=== PATIENT | male | born 1950 | race Caucasian/White ===

== ENCOUNTER 2016-06-30 09:00 | Outpatient (RCR) | payer MEDICARE, OTHER, MEDICAID ==
--- OUTSIDE RECORDS SUMMARY | 2016-04-17 11:22 | XMS REPORT | Continuity of Care Document ---
Author Author [facility] Organization [facility] Address Unknown Phone Unavailable Care Team Providers Care Chief Nurse Name Role Phone YAIR CHAVEZ MD PCP Insurance Providers Payer Name Policy Number Subscriber Name Relationship Wps Medicare [id number] Breana Cano 18 Self / Same As Patient Advance Directives Directive Response Recorded Date/Time Advance Directives Yes 12/01/14 11:30pm Health Care Power of [place] A Driver No 12/01/14 11:30pm Organ Donor No 12/01/14 11:30pm Resuscitation Status Full Code 12/01/14 11:30pm Chief Complaint and Reason for Visit Chief Complaint LOW LOC,SEPSIS,[place] Reason for Visit IDDM (insulin dependent diabetes mellitus) Sepsis AMI (acute myocardial infarction) Altered mental state Pneumonitis Problems Medical Problems Problem Onset Date Status Cellulitis Unknown Active Congestive heart failure Unknown Active Atrial fibrillation Unknown Active History of cardiac disorder Unknown Active Diabetes Unknown Active 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 Cellulitis of foot, left Unknown Active IDDM (insulin dependent diabetes mellitus) Unknown Active Sepsis Unknown Active AMI (acute myocardial infarction) Unknown Active Altered mental state Unknown Active Pneumonitis Unknown Active Medications Medication Dose Route Sig Days/Qty Instructions Order Date Discontinued Date Status Cefprozil 1 Each PO TWICE A DAY 20 Qty FOR INFECTION 08/18/10 02/14/11 Discontinued Azithromycin (Zpak) 2 Tab PO DAILY 10 Qty 08/18/10 02/14/11 Discontinued Prednisone 20 Mg PO TWICE A DAY 4 Qty FOR THROAT 08/18/10 02/14/11 Discontinued Clopidogrel Bisulfate 75 Mg PO DAILY 02/14/11 07/31/13 Discontinued Aspirin 81 Mg PO DAILY 02/14/11 Active Metformin HCl (Glucophage) 1,000 Mg PO TWICE A DAY WITH MEALS 04/29/14 Discontinued Lisinopril (Zestril) 2.5 Mg PO DAILY 02/14/11 Active Digoxin (Lanoxin) 0.25 Mg PO DAILY 02/14/11 04/30/14 Discontinued Furosemide 80 Mg PO TWICE A DAY 02/14/11 04/30/14 Discontinued Potassium Chloride (Micro K) 20 Meq PO TWICE A DAY 02/14/11 Active [place]-3/Dha/Epa/Fish Oil 1,000 Mg PO TWICE A DAY 02/14/11 Active Carvedilol (Coreg) 6.25 Mg PO TWICE A DAY 02/14/11 Active Fenofibrate 135 Mg PO DAILY 02/14/11 04/30/14 Discontinued Niacin 1,000 Mg PO TWICE A DAY 02/14/11 02/15/11 Discontinued Atorvastatin Calcium 80 Mg PO BEDTIME 02/14/11 02/19/14 Discontinued Insulin Lispro 24 Unit SQ BEFORE MEALS 02/14/11 Active Insulin Detemir 60 Units SQ BEDTIME 02/14/11 Active Gemfibrozil 600 Mg PO TWICE A DAY 02/15/11 07/28/13 Discontinued Acetaminophen/Hydrocodone Bitart 1 Each PO 01/16/13 07/28/13 Discontinued Gabapentin 100 Mg PO TWICE A DAY 07/28/13 02/19/14 Discontinued Hydrocodone Bit/Acetaminophen 1 Tab PO EVERY 6 HOURS PRN PAIN Active Levofloxacin 500 Mg PO DAILY@11 7 Days 07/31/13 02/19/14 Discontinued Apixaban 5 Mg PO TWICE A DAY 60 Qty 07/31/13 02/19/14 Discontinued Atorvastatin Calcium 80 Mg PO 1700 02/19/14 04/30/14 Discontinued Gabapentin 300 Mg PO THREE TIMES A DAY 02/19/14 Active Apixaban (Eliquis) 5 Mg PO TWICE A DAY 02/19/14 04/30/14 Discontinued Metolazone (Zaroxolyn) 2.5 Mg PO DAILY 02/19/14 04/29/14 Discontinued Cephalexin Monohydrate (Keflex) 1 Each PO THREE TIMES A DAY 60 Qty 04/29/14 Discontinued Terbinafine HCl 1 Tab PO DAILY 14 Qty 02/22/14 04/29/14 Discontinued Furosemide (Lasix) 80 Mg PO TWICE A DAY 04/30/14 Active Atorvastatin Calcium 80 Mg PO DAILY 04/30/14 12/02/14 Discontinued Fenofibric Acid (Choline) 135 Mg PO DAILY 04/30/14 Active Apixaban 5 Mg PO TWICE A DAY 04/30/14 Active Digoxin 250 Mcg PO DAILY 04/30/14 Active Ciprofloxacin HCl 500 Mg PO TWICE A DAY 20 Qty 05/07/14 05/12/14 Discontinued Ciprofloxacin HCl 500 Mg PO TWICE A DAY 10 DAY THERAPY STARTED 05-07-14 05/12/14 12/02/14 Discontinued Carvedilol 3.125 Mg PO TWICE A DAY 30 Days 12/04/14 Active Furosemide 80 Mg PO TWICE A DAY 30 Days 12/04/14 Active Insulin Human Regular 0 Unit SC BEFORE MEALS AND AT BEDTIME 30 Days Active Menthol/Lanolin/Calamine/Znox 0 Gm TOP TWICE A DAY 30 Days 12/04/14 Active Potassium Chloride 20 Meq PO DAILY@0700 30 Days 12/04/14 Active Social History Social History Problem Response Recorded Date/Time Alcohol Use Past History 12/01/2014 11:30pm Recreational Drug Use No 12/01/2014 11:30pm Recent Foreign Travel No 12/01/2014 11:40pm Recent Infectious Disease Exposure No 12/01/2014 11:30pm Sexually Transmitted Disease No 12/01/2014 11:30pm Smoking Status Current Everyday Smoker 12/01/2014 11:32pm Do you dip or chew tobacco? No 12/01/2014 11:32pm Query Response Start Date Stop Date Smoking Status Current Everyday Smoker Hospital Discharge Instructions No hospital discharge instructions. Plan of Care Discharge Date 12/04/14 10:50am Disposition 30 STILL A PATIENT Instructions/Education Provided Sepsis (DC) Prescriptions See Medications Section Referrals KATHLEEN MUNOZ DPM (Unspecified) Address: [address] [facility] [address] [place] [address] Reason(s) for Referral: 05/11/14 AT 9:30 AM IN [place] YAIR CHAVEZ MD (Unspecified) Address: [facility] [facility] [address], [facility] [address] [place] [address] Reason(s) for Referral: SEE DR. CHAVEZ ON 05-22-14 AT 12:30 PM (Unspecified) Today (Unspecified) Today (Unspecified) Reason(s) for Referral: PT/OT Functional Status Query Response Date Recorded Patient Orientation Person Place Time Situation December 03, 2014 2:50pm Comprehension Ability Understands Concepts December 04, 2014 8:00am Allergies, Adverse Reactions, Alerts Allergen Type Severity Reaction Status Last Updated No Known Drug Allergies Active 03/08/08 Immunizations Name Given Type Date of Pneumonia Vaccine 04/29/10 Historical Tetanus Booster (TDap) Unknown Historical Vital Signs Acute Vital Signs Vital Response Date/Time Temperature (Fahrenheit) 96.1 degrees F (97.6 - 99.5) Temperature (Calculated Celsius) 35.08422 degrees C (36.4 - 37.5) Temperature Source Tympanic Pulse Rate (adult) 85 bpm (60 - 90) Respiratory Rate 18 bpm (12 - 24) O2 Sat by Pulse Oximetry 95 % (88 - 100) Blood Pressure 87/53 mm Hg Pain Pain Intensity 0 Height (Feet) 6 feet Height (Inches) 10 inches Height (Calculated Centimeters) 182.565069 cm Weight (Pounds) 236 pounds Weight (Ounces) 5.0 oz Weight (Calculated Grams) 461750.548 gm Weight (Calculated Kilograms) 107.855623 kilograms Calculated BMI 31.56 Results Laboratory Results Test Name Result Units Flags Reference Collection Date/Time Result Date/ Time Comments White Blood Count 12.7 10^3/uL H 4.3-11.0 12/04/2014 8:25am 12/04/2014 8: 55am Red Blood Count 5.08 10^6/uL 4.35-5.85 12/04/2014 8:12/04/2014 8: 55am Hemoglobin 14.0 G/DL 13.3-17.7 12/04/2014 8:12/04/2014 8:55am Hematocrit 43 % 40-54 12/04/2014 8:12/04/2014 8:55am Mean Corpuscular Volume 84 FL 80-99 12/04/2014 8:12/04/2014 8: 55am Mean Corpuscular Hemoglobin 28 PG 25-34 12/04/2014 8:12/04/2014 8: 55am Mean Corpuscular Hemoglobin Concent 33 G/DL 32-36 12/04/2014 8: 8:55am Red Cell Distribution Width 16.1 % H 10.0-14.5 12/04/2014 8:2014 8:55am Platelet Count 130 10^3/uL 130-400 12/04/2014 8:12/04/2014 8:55am Mean Platelet Volume 11.5 FL H 7.4-10.4 12/04/2014 8:12/04/2014 8: 55am Neutrophils (%) (Auto) 86 % H 42-75 12/03/2014 7:12/03/2014 7:35am Lymphocytes (%) (Auto) 6 % L 12-44 12/03/2014 7:12/03/2014 7:35am Monocytes (%) (Auto) 8 % 0-12 12/03/2014 7:12/03/2014 7:35am Eosinophils (%) (Auto) 0 % 0-10 12/03/2014 7:12/03/2014 7:35am Basophils (%) (Auto) 0 % 0-10 12/03/2014 7:12/03/2014 7:35am Neutrophils # (Auto) 7.9 X 10^3 H 1.8-7.8 12/03/2014 7:12/03/2014 7: 35am Lymphocytes # (Auto) 0.6 X 10^3 L 1.0-4.0 12/03/2014 7:12/03/2014 7: 35am Monocytes # (Auto) 0.7 X 10^3 0.0-1.0 12/03/2014 7:11am 12/03/2014 7: 35am Eosinophils # (Auto) 0.0 10^3/uL 0.0-0.3 12/03/2014 7:11am 12/03/2014 7 :35am Basophils # (Auto) 0.0 10^3/uL 0.0-0.1 12/03/2014 7:11am 12/03/2014 7: 35am Neutrophils % (Manual) 60 % 12/01/2014 7:40pm 12/01/2014 8:20pm Band Neutrophils 36 % 12/01/2014 7:40pm 12/01/2014 8:20pm Lymphocytes % (Manual) 2 % 12/01/2014 7:40pm 12/01/2014 8:20pm Monocytes % (Manual) 2 % 12/01/2014 7:40pm 12/01/2014 8:20pm Eosinophils % (Manual) 0 % 12/01/2014 7:40pm 12/01/2014 8:20pm Basophils % (Manual) 0 % 12/01/2014 7:40pm 12/01/2014 8:20pm Blood Morphology Comment NORMAL 12/01/2014 7:40pm 12/01/2014 8: 20pm Urine Color MARCOS * 12/01/2014 9:23pm 12/01/2014 9:44pm Urine Clarity SLIGHTLY CLOUDY 12/01/2014 9:23pm 12/01/2014 9:44pm Urine pH 5 5-9 12/01/2014 9:23pm 12/01/2014 9:44pm Urine Specific [place] 1.025 * 1.016-1.022 12/01/2014 9:23pm 2014 9:44pm Urine Protein 3+ * NEGATIVE 12/01/2014 9:23pm 12/01/2014 9:44pm Urine Glucose (UA) NEGATIVE NEGATIVE 12/01/2014 9:23pm 12/01/2014 9: 44pm Urine RBC (Auto) 4+ * NEGATIVE 12/01/2014 9:23pm 12/01/2014 9:44pm Urine Ketones 1+ * NEGATIVE 12/01/2014 9:23pm 12/01/2014 9:44pm Urine Nitrite NEGATIVE NEGATIVE 12/01/2014 9:23pm 12/01/2014 9:44pm Urine Bilirubin 1+ * NEGATIVE 12/01/2014 9:pm 12/01/2014 9:44pm Urine Urobilinogen 1 MG/DL NORMAL 12/01/2014 9:pm 12/01/2014 9:44pm Urine Leukocyte Esterase 1+ * NEGATIVE 12/01/2014 9:pm 12/01/2014 9: 44pm Urine RBC 2-5 /HPF * 12/01/2014 9:pm 12/01/2014 9:44pm Urine WBC 5-10 /HPF * 12/01/2014 9:pm 12/01/2014 9:44pm Urine Bacteria MODERATE /HPF * 12/01/2014 9:pm 12/01/2014 9:44pm Urine Squamous Epithelial Cells 5-10 /HPF 12/01/2014 9:pm 2014 9:44pm Urine Crystals NONE /LPF 12/01/2014 9:pm 12/01/2014 9:44pm Urine Casts PRESENT /LPF 12/01/2014 9:pm 12/01/2014 9:44pm Urine Hyaline Casts 5-10 /LPF * 12/01/2014 9:12/01/2014 9:44pm Urine Mucus NEGATIVE /LPF 12/01/2014 9:pm 12/01/2014 9:44pm Urine Culture Indicated YES 12/01/2014 9:pm 12/01/2014 9:44pm Sodium Level 132 MMOL/L L 135-145 12/04/2014 8:25am 12/04/2014 9:25am Potassium Level 3.7 MMOL/L 3.6-5.0 12/04/2014 8:25am 12/04/2014 9:25am Chloride Level 101 MMOL/L 98-107 12/04/2014 8:25am 12/04/2014 9:25am Carbon Dioxide Level 24 MMOL/L 21-32 12/04/2014 8:25am 12/04/2014 9: 25am Blood Urea Nitrogen 40 MG/DL H 7-18 12/04/2014 8:25am 12/04/2014 9:25am Creatinine 1.28 MG/DL 0.60-1.30 12/04/2014 8:25am 12/04/2014 9:25am BUN/Creatinine Ratio 31 12/04/2014 8:25am 12/04/2014 9:25am Estimat Glomerular Filtration Rate 56 12/04/2014 8:25am 12/04/2014 9:25am GFR INTERPRETIVE DATA UNITS FOR ESTIMATED GFR (eGFR): mL/min/1.73 M2 REFERENCE RANGE FOR ESTIMATED GFR (eGFR) eGFR NORMAL eGFR >60 MODERATELY DECREASED eGFR 30-59 SEVERLY DECREASED eGFR 15-29 KIDNEY FAILURE <15 (OR DIALYSIS) Glucose Level 54 MG/DL CL 70-105 12/04/2014 8:25am 12/04/2014 9:25am RESULTS CALLED TO SHAYY AT 09. RESULTS READ BACK: YES. Glucometer 96 MG/DL 70-110 12/04/2014 10:27am 12/04/2014 11:16am Calcium Level 8.2 MG/DL L 8.5-10.1 12/04/2014 8:25am 12/04/2014 9:25am Phosphorus Level 3.8 MG/DL 2.3-4.7 12/03/2014 6:00am 12/03/2014 7:11am Magnesium Level 2.1 MG/DL 1.8-2.4 12/03/2014 6:00am 12/03/2014 6:52am Total Bilirubin 2.0 MG/DL H 0.1-1.0 12/02/2014 5:03am 12/02/2014 5:50am Alkaline Phosphatase 72 U/L 40-136 12/02/2014 5:03am 12/02/2014 5:50am Aspartate Amino Transf (AST/SGOT) 63 U/L H 5-34 12/02/2014 5:03am 2014 5:50am Alanine Aminotransferase (ALT/SGPT) 14 U/L 0-55 12/02/2014 5:03am 12/02 5:50am Troponin I 25.47 NG/ML CH <0.30 12/01/2014 7:40pm 12/01/2014 8:27pm RESULT CALLED TO SHEILA AT 2026. RESULTS READ BACK: YES. Total Protein 6.7 G/DL 6.4-8.2 12/02/2014 5:03am 12/02/2014 5:50am Albumin 3.1 G/DL L 3.2-4.5 12/02/2014 5:03am 12/02/2014 5:50am Lipase 5 U/L L 8-78 12/01/2014 7:40pm 12/01/2014 8:20pm Lactic Acid Level 3.6 MMOL/L CH 0.5-2.2 12/01/2014 UNK 12/01/2014 8:38pm RESULTS CALLED TO NEFTALY AT 2035. RESULTS READ BACK: YES. Vancomycin Level Trough 11.2 UG/ML 10.0-20.0 12/04/2014 8:25am 2014 9:12am Digoxin Level 1.01 NG/ML 0.80-2.00 12/01/2014 7:40pm 12/01/2014 8:27pm Microbiology Results Procedure Source Result Collection Date/Time Result Date/Time Anaerobic Culture Tissue, Foot, Left ANAEROBIC GRAM NEGATIVE KARMEN 08/19/2014 1:46pm 08/26/2014 11:06am PORPHYOMONAS SPECIES 08/19/2014 1:46pm 08/26/2014 11:06am PREVOTELLA SPECIES 08/19/2014 1:46pm 08/26/2014 11:06am Wound Culture Tissue, Foot, Left GRAM POSITIVE COCCI 08/19/2014 1:46pm 3:43pm STAPHYLOCOCCUS AUREUS 08/19/2014 1:46pm 08/23/2014 3:43pm GRAM POSITIVE COCCI 08/19/2014 1:46pm 08/23/2014 3:43pm STAPHYLOCOCCUS AUREUS 08/19/2014 1:46pm 08/23/2014 3:43pm GRAM POSITIVE COCCI 08/19/2014 1:46pm 08/23/2014 3:43pm PROBABLE ENTEROCOCCUS SPECIES 08/19/2014 1:46pm 08/23/2014 3:43pm STAPHYLOCOCCUS AUREUS 08/19/2014 1:46pm 08/23/2014 3:43pm STREPTOCOCCUS VIRIDANS 08/19/2014 1:46pm 08/23/2014 3:43pm ENTEROCOCCUS FAECALIS 08/19/2014 1:46pm 08/23/2014 3:43pm GRAM POSITIVE COCCI 08/19/2014 1:46pm 08/23/2014 3:43pm STAPHYLOCOCCUS AUREUS 08/19/2014 1:46pm 08/23/2014 3:43pm STREPTOCOCCUS VIRIDANS 08/19/2014 1:46pm 08/23/2014 3:43pm ENTEROCOCCUS FAECALIS 08/19/2014 1:46pm 08/23/2014 3:43pm STAPHYLOCOCCUS AUREUS 08/19/2014 1:46pm 08/23/2014 3:43pm ENTEROCOCCUS FAECALIS 08/19/2014 1:46pm 08/23/2014 3:43pm STAPHYLOCOCCUS AUREUS 08/19/2014 1:46pm 08/23/2014 3:43pm Procedures Procedure Status Date Provider(s) Tracing only of electrocardiogram completed 12/01/14 KAREN BROWN DO Encounters Encounter Location Date/Time Discharged Inpatient Via [facility] 12/01/14 9:13pm Registered Recurring Via [facility] 11/25/14 10:18am Discharged Recurring Via [facility] 08/19/14 10:05am Recent Diagnosis IDDM (insulin dependent diabetes mellitus) Sepsis AMI (acute myocardial infarction) Altered mental state Pneumonitis
[~2016-06-30 09:00] MED LIST: ACHD5005 PO; ACHYD1T PO; APIX5TAB2 PO; ASP81TEC PO; ATOR40TA PO; ATOR80TA2 PO; ATOR80TA75 PO; AZIT-21 PO; CARV3.12T PO; CARV6.252 PO; CEFP500T4 PO; CEPH500C PO; CIPR500T78 PO; CLPD75T PO; DIGO250T PO; DOXY100C42 PO; EUCERIN TOP; FENO135C PO; FENO135C4 PO; FISH1CAP15 PO; FRSM40T PO; FURO80TA3 PO; GABA-488 PO; GBPN100C PO; GMFB600T PO; HYDR-2890 PO; HYDR-3820 PO; INSR1U SC; INSU100I14 SQ; INSU100I23 SQ; KCL20TCR PO; LEVE1U SQ; LISI2.5T56 PO; LVF500T PO; MENT71OI TOP; METF-380 PO; METO2.5T PO; MTL2.5T PO; Mupirocin TOP; NIAC1000 PO; Nystatin TP; OMEG-12 PO; POTA10CA43 PO; POTA10TA PO; PRD20T PO; TERB250T42 PO
[2016-07-14] MEDS ORDERED: METO5TAB6 PO (10:55)
[2016-07-14] MEDS ORDERED: APIX5TAB PO (10:55)
[2016-07-14] MEDS ORDERED: POTA20TA8 PO (10:55)
[2016-07-14] MEDS ORDERED: CLOP75TA28 PO (10:55)
[2016-07-14] MEDS ORDERED: LISI2.5T PO (10:55)
[2016-07-14] MEDS ORDERED: DIGO250T PO (10:55)
[2016-07-14] MEDS ORDERED: FURO80TA3 PO (10:55)
[2016-07-14] MEDS ORDERED: CARV6.252 PO (10:55)
[2016-07-17] MEDS ORDERED: HYDR-3820 PO (11:38)
[2016-07-17] MEDS ORDERED: AMOX-355 PO (11:38)
== END 2016-07-16 | disposition home or self-care (01) ==
LOC: WOUNDCARE 09:00
PROVIDERS: ATTEND Surgery
DX: E11.621 Type 2 diabetes mellitus with foot ulcer (principal); E11.42 Type 2 diabetes mellitus with diabetic polyneuropathy; L97.522 Non-pressure chronic ulcer of other part of left foot with fat layer exposed; L97.422 Non-pressure chronic ulcer of left heel and midfoot with fat layer exposed; I70.244 Atherosclerosis of native arteries of left leg with ulceration of heel and midfoot; I87.323 Chronic venous hypertension (idiopathic) with inflammation of bilateral lower extremity; I50.40 Unspecified combined systolic (congestive) and diastolic (congestive) heart failure; I89.0 Lymphedema, not elsewhere classified; T53 Toxic effect of halogen derivatives of aliphatic and aromatic hydrocarbons; Z72.0 Tobacco use
CPT/HCPCS: 11042; 87070; 87075; 87077; 87186; 87205

== ENCOUNTER 2016-07-14 09:18 | Inpatient (IN) | payer MEDICARE, OTHER, MEDICAID ==
[~2016-07-14] VITALS: Ht 182.9 cm; Wt 97.2 kg
--- OUTSIDE RECORDS SUMMARY | 2016-07-14 09:23 | XMS REPORT | Continuity of Care Document ---
Author Author [facility] Organization [facility] Address Unknown Phone Unavailable Care Team Providers Care Junior Network Engineer Name Role Phone YAIR CHAVEZ MD PCP Insurance Providers Payer Name Policy Number Subscriber Name Relationship Wps Medicare [id number] Breana Cano 18 Self / Same As Patient Advance Directives Directive Response Recorded Date/Time Advance Directives Yes 12/01/14 11:30pm Health Care Power of Country Printer No 12/01/14 11:30pm Organ Donor No 12/01/14 11:30pm Resuscitation Status Full Code 12/01/14 11:30pm Chief Complaint and Reason for Visit Chief Complaint LOW LOC,SEPSIS,[place] Reason for Visit IDDM (insulin dependent diabetes [...] Meq PO TWICE A DAY 02/14/11 Active [place]-3/Dha/Epa/Fish Oil 1,000 Mg PO TWICE A DAY [...] Referrals KATHLEEN MUNOZ DPM (Unspecified) Address: [address] [facility] [address] [place] [address] Reason(s) for Referral: 05/11/14 AT 9:30 AM IN [place] YAIR CHAVEZ MD (Unspecified) Address: [facility] [facility] [address], [facility] [address] [place] [address] Reason(s) for Referral: SEE DR. CHAVEZ ON [...] F (97.6 - 99.5) Temperature (Calculated Celsius) 35.47479 degrees C (36.4 - 37.5) Temperature Source Tympanic Pulse Rate (adult) 85 bpm (60 - 90) Respiratory Rate 18 bpm (12 - 24) O2 Sat by Pulse Oximetry 95 % (88 - 100) Blood Pressure 87/53 mm Hg Pain Pain Intensity 0 Height (Feet) 6 feet Height (Inches) 10 inches Height (Calculated Centimeters) 182.857227 cm Weight (Pounds) 236 pounds Weight (Ounces) 5.0 oz Weight (Calculated Grams) 234100.548 gm Weight (Calculated Kilograms) 107.858574 kilograms Calculated BMI 31.56 Results Laboratory Results [...] 5-9 12/01/2014 9:23pm 12/01/2014 9:44pm Urine Specific [place] 1.025 * 1.016-1.022 12/01/2014 9:23pm 2014 9:44pm [...] Encounters Encounter Location Date/Time Discharged Inpatient Via [facility] 12/01/14 9:13pm Registered Recurring Via [facility] 11/25/14 10:18am Discharged Recurring Via [facility] 08/19/14 10:05am Recent Diagnosis IDDM (insulin dependent diabetes mellitus) Sepsis AMI (acute myocardial infarction) Altered mental state Pneumonitis
[2016-07-14 09:48] LABS: BASOPHILS % (AUTO) 0 % (0-10); EOSINOPHILS % (AUTO) 0 % (0-10); LYMPHOCYTES # (AUTO) 0.5 X 10^3 (1.0-4.0); LYMPHOCYTES % (AUTO) 4 % (12-44); MEAN CORPUSCULAR HEMOGLOBIN 26 PG (25-34); MEAN CORPUSCULAR HGB CONC 33 G/DL (32-36); MEAN CORPUSCULAR VOLUME 80 FL (80-99); MEAN PLATELET VOLUME 9.5 FL (7.4-10.4); MONOCYTES # (AUTO) 1.1 X 10^3 (0.0-1.0); MONOCYTES % (AUTO) 9 % (0-12); NEUTROPHILS # (AUTO) 11.2 X 10^3 (1.8-7.8); NEUTROPHILS % (AUTO) 87 % (42-75); PLATELET COUNT 211 10^3/uL (130-400); WHITE BLOOD COUNT 12.8 10^3/uL (4.3-11.0)
--- NOTE | 2016-07-14 09:49 | ED General ---
General Chief Complaint: Neurological Problems Stated Complaint: WEAKNESS Nursing Triage Note: ARRVIVED VIA AMBULANCE FROM HOME. COMPLAINS OF GENERALIZED WEAKNESS WITH DIARRHEA X4 DAYS. PT HAS WEAPING COVERED WOUNDS BILAT LOWER LEGS THAT HE SEES THE WOUND DOCTOR MONTHLY. STATES HE CHANGES THE DRESSINGS EVERY OTHER DAY. WOUNDS ARE VERY ODEROUS. Nursing Sepsis Screen: No Definite Risk Source of Information: Patient, Family Exam Limitations: No Limitations History of Present Illness Time Seen by Provider: 09:41 Initial Comments This 65-year-old white male presents with progressive weakness. He has had chronic wounds of his lower extremities from diabetes and congestive heart failure. Although the patient had been on antibiotics in the past currently not taking antibiotics and is using compression dressings to both lower extremities. The dressings were applied approximately 4 days ago. The patient is under the care of Dr. Ann. Significant past medical history includes congestive heart failure, diabetes, hypertension. Patient states she has had intermittent diarrhea for the last 3 days. Allergies and Home Medications Allergies Coded Allergies: No Known Drug Allergies (Verified , 03/08/08) Home Medications TOP DAILY (Reported) Apixaban 5 Mg Tablet 5 MG PO BID (Reported) Aspirin 81 Mg Tabec 81 MG PO DAILY (Reported) Carvedilol 6.25 Mg Tablet 3.125 MG PO BID (Reported) TAKES 1/2 (6.25MG) TABLET Digoxin 250 Mcg Tablet 250 MCG PO DAILY (Reported) Fish Oil/Dha/Epa 1 Each Capsule 1,200 MG PO BID (Reported) Furosemide 80 Mg Tablet 80 MG PO BID (Reported) Gabapentin 300 Mg Capsule 300 MG PO TID (Reported) Hydrocodone/Acetaminophen 1 Each Tablet 1 TAB PO Q6H PRN PRN PAIN (Reported) Insulin Aspart 300 Units/3 Ml Solution 24 UNITS SQ AC (Reported) Lisinopril 2.5 Mg Tablet 2.5 MG PO DAILY (Reported) Metolazone 2.5 Mg Tablet 2.5 MG PO EVERY OTHER DAY (Reported) Potassium Chloride 10 Meq Tablet.er 20 MEQ PO BID (Reported) TAKES 2 (10MEQ) TABLETS Constitutional: No chills, No fever EENTM: No hearing loss, No vision loss Respiratory: No cough Cardiovascular: No chest pain Gastrointestinal: diarrheaNo nausea, No vomiting Genitourinary: No dysuria, No frequency Musculoskeletal: see HPI Skin: see HPI other (patient has bilateral ulcers of the lower extremities from the knees distally.) Psychiatric/Neurological: No Symptoms Reported Hematologic/Lymphatic: No Symptoms Reported Immunological/Allergic: no symptoms reported Past Nrhepkt-Sfhwxr-Nwgodj Hx Patient Social History Recent Foreign Travel: No Contact w/Someone Who Travel: No Recent Infectious Disease Expo: No Recent Hopitalizations: Yes Immunizations Up To Date Tetanus Booster (TDap): Unknown Date of Pneumonia Vaccine: Apr 17, 2010 Seasonal Allergies Seasonal Allergies: No Surgeries HX Surgeries: Yes (ALL FROM PREVIOUS RECORD--PT IS POOR HISTORIAN) Surgeries: Appendectomy, Coronary Stent, Defibrillator, Orthopedic Respiratory Hx Respiratory Disorders: No Cardiovascular Hx Cardiac Disorders: Yes (Defibrillator, ALL FROM PREVIOUS RECORD--PT IS POOR HISTORIAN) Cardiac Disorders: Heart Attack Neurological Hx Neurological Disorders: No (UNABLE TO OBTAIN, PT POOR HISTORIAN) Reproductive System Hx Reproductive Disorders: No Sexually Transmitted Disease: No Genitourinary Hx Genitourinary Disorders: No Gastrointestinal Hx Gastrointestinal Disorders: No Musculoskeletal Hx Musculoskeletal Disorders: Yes (ALL FROM PREVIOUS RECORD--PT IS POOR HISTORIAN) Musculoskeletal Disorders: Amputee, Osteoporosis, Arthritis, Rheumatoid Arthritis Endocrine Hx Endocrine Disorders: Yes (ALL FROM PREVIOUS RECORD--PT IS POOR HISTORIAN) Endocrine Disorders: Diabetes, Insulin dep HEENT HX ENT Disorders: No (ALL FROM PREVIOUS RECORD--PT IS POOR HISTORIAN) Hearing Impairment: Denies Cancer Hx Cancer: Yes (SQUAMOUS CELL, ALL FROM PREVIOUS RECORD--PT IS POOR HISTORIAN) Cancer: Skin Psychosocial Hx Psychiatric Problems: Yes (ALL FROM PREVIOUS RECORD--PT IS POOR HISTORIAN) Behavioral Health Disorders: Depression Integumentary HX Skin/Integumentary Disorder: Yes (Cellulitis, ALL FROM PREVIOUS RECORD--PT IS POOR HISTORIAN) Blood Transfusions Hx Blood Disorders: No Reviewed Nursing Assessment Reviewed/Agree w Nursing PMH: Yes Family Medical History Family Medial History: Dysphagia Family history: Cardiovascular disease 03 MOTHER Family history: Hypertension 03 MOTHER 09 SISTER Myocardial infarction 03 MOTHER 09 SISTER 09 SISTER No Family History of: Family history: Diabetes mellitus Physical Exam Vital Signs Vital Sign - Last 12Hours 07/14/16 09:18 Temp 95.9 Pulse 83 Resp 18 B/P 111/74 Capillary Refill : Less Than 3 Seconds General Appearance: No Apparent Distress Chronically ill HEENT: Normal ENT Inspection Neck: Normal Inspection Respiratory: Lungs Clear Cardiovascular: Irregularly Irregular Gastrointestinal: Normal Bowel Sounds Extremity: Other (I removed the patient's dressing to both legs. There was no evidence of infection. I remove the dressings to the left foot. 2 healing ulcers to the plantar surface of the foot were appreciated. One over the heel. One over essentially the amputated second toe. The patient had a trans-met amputation involving all of the toes in May.) Neurologic/Psychiatric: Alert Oriented x3 No Motor/Sensory Deficits Progress/Results/Core Measures Results/Orders Lab Results Laboratory Tests Test 07/14/16 09:25 07/14/16 10:07 Range/Units Alanine Aminotransferase (ALT/SGPT) < 6 0-55 U/L Albumin 2.8 L 3.2-4.5 G/DL Alkaline Phosphatase 118 40-136 U/L Anion Gap 10 5-14 MMOL/L Anisocytosis SLIGHT Aspartate Amino Transf (AST/SGOT) 9 5-34 U/L B-Type Natriuretic Peptide 804.4 H <100.0 PG/ML BUN/Creatinine Ratio 28 Band Neutrophils 7 % Basophils # (Auto) 0.0 0.0-0.1 10^3/uL Basophils % (Manual) 0 % Basophils (%) (Auto) 0 0-10 % Blood Urea Nitrogen 33 H 7-18 MG/DL Calcium Level 8.2 L 8.5-10.1 MG/DL Carbon Dioxide Level 23 21-32 MMOL/L Chloride Level 92 L 98-107 MMOL/L Creatinine 1.18 0.60-1.30 MG/DL Eosinophils # (Auto) 0.0 0.0-0.3 10^3/uL Eosinophils % (Manual) 0 % Eosinophils (%) (Auto) 0 0-10 % Estimat Glomerular Filtration Rate > 60 Glucose Level 141 H 70-105 MG/DL Hematocrit 31 L 40-54 % Hemoglobin 9.9 L 13.3-17.7 G/DL Lymphocytes # (Auto) 0.5 L 1.0-4.0 X 10^3 Lymphocytes % (Manual) 4 % Lymphocytes (%) (Auto) 4 L 12-44 % Mean Corpuscular Hemoglobin 26 25-34 PG Mean Corpuscular Hemoglobin Concent 33 32-36 G/DL Mean Corpuscular Volume 80 80-99 FL Mean Platelet Volume 9.5 7.4-10.4 FL Monocytes # (Auto) 1.1 H 0.0-1.0 X 10^3 Monocytes % (Manual) 7 % Monocytes (%) (Auto) 9 0-12 % Neutrophils # (Auto) 11.2 H 1.8-7.8 X 10^3 Neutrophils % (Manual) 82 % Neutrophils (%) (Auto) 87 H 42-75 % Platelet Count 211 130-400 10^3/uL Potassium Level 4.2 3.6-5.0 MMOL/L Red Blood Count 3.80 L 4.35-5.85 10^6/uL Red Cell Distribution Width 16.0 H 10.0-14.5 % Sodium Level 125 *L 135-145 MMOL/L Total Bilirubin 1.4 H 0.1-1.0 MG/DL Total Protein 7.3 6.4-8.2 G/DL White Blood Count 12.8 H 4.3-11.0 10^3/uL Lactic Acid Level 1.3 0.5-2.0 MMOL/L My Orders Orders-DEBBIE PATEL MD Blood Culture (07/14/16 09:36) Wound Culture (07/14/16 09:36) Cbc With Automated Diff (07/14/16 09:36) Comprehensive Metabolic Panel (07/14/16 09:36) BNP (07/14/16 09:36) Ekg Tracing (07/14/16 09:36) Chest 1 View, Ap/Pa Only (07/14/16 09:36) Ua Culture If Indicated (07/14/16 09:36) Lactic Acid Analyzer (07/14/16 09:36) Manual Differential (07/14/16 09:25) Wound Culture (07/14/16 09:50) Vital Signs/I&O Vital Sign - Last 12Hours 07/14/16 09:18 Temp 95.9 Pulse 83 Resp 18 B/P 111/74 Blood Pressure Mean: 86 Progress Note : Time: 10:[address] Ann saw the patient in the ED. He felt the patient had a significant cellulitis. Visited with Dr. Angel and she was kind enough to admit patient. Will place consults to cardiology surgery and social security benefits interviewer as well as to wound care. Departure Communication Time/Spoke to Admitting Phy: 10:[address] Angel Time/Spoke to Consulting Physi: 10:30 Communication/Consulting Dr. Ann saw the pt in the ED and felt he had a significant cellulitis of the left leg. His request that the patient be admitted. Consulted Drs. Mann and Subhash. Impression Impression: Primary Impression: Cellulitis of foot, left Additional Impression: Sepsis Qualified Code: A41.9 - Sepsis, unspecified organism Disposition: ADMITTED INPATIENT Condition: Improved Decision to Admit Reason: Admit from ER (General) Decision to Admit/Date: Jul 14, 2016 Time/Decision to Admit Time: 11:03 Departure-Patient Inst. Decision time for Depature: 11:03 Referrals: YAIR CHAVEZ MD (PCP/Family) Primary Care Physician DEBBIE PATEL MD Jul 14, 2016 09:48
[2016-07-14 10:00] LABS: ALANINE AMINOTRANSFERASE < 6 U/L (0-55); ALBUMIN 2.8 G/DL (3.2-4.5); ANION GAP 10 MMOL/L (5-14); ASPARTATE AMINO TRANSFERASE 9 U/L (5-34); BILIRUBIN,TOTAL 1.4 MG/DL (0.1-1.0); BLOOD UREA NITROGEN 33 MG/DL (7-18); BUN/CREATININE RATIO 28; CALCIUM 8.2 MG/DL (8.5-10.1); CARBON DIOXIDE 23 MMOL/L (21-32); CHLORIDE 92 MMOL/L (98-107); CREATININE SERUM 1.18 MG/DL (0.60-1.30); GFR ESTIMATED > 60; GLUCOSE 141 MG/DL (70-105); POTASSIUM 4.2 MMOL/L (3.6-5.0); TOTAL PROTEIN 7.3 G/DL (6.4-8.2)
[2016-07-14 10:03] LABS: SODIUM 125 MMOL/L (135-145)
[2016-07-14 10:11] LABS: BAND NEUTROPHILS 7 %; BASOPHILS % (MANUAL) 0 %; EOSINOPHILS % (MANUAL) 0 %; LYMPHOCYTES % (MANUAL) 4 %; NEUTROPHILS % (MANUAL) 82 %
[2016-07-14 10:12] LABS: ANISOCYTOSIS SLIGHT
[2016-07-14] MEDS ORDERED: METO5TAB6 PO (10:55)
[2016-07-14] MEDS ORDERED: DIGO250T PO (10:55)
[2016-07-14] MEDS ORDERED: POTA20TA8 PO (10:55)
[2016-07-14] MEDS ORDERED: APIX5TAB PO (10:55)
[2016-07-14] MEDS ORDERED: FURO80TA3 PO (10:55)
[2016-07-14] MEDS ORDERED: CLOP75TA28 PO (10:55)
[2016-07-14] MEDS ORDERED: CARV6.252 PO (10:55)
[2016-07-14] MEDS ORDERED: LISI2.5T PO (10:55)
[2016-07-14] MEDS: VANCOMYCIN 2000 MG/NS 500 ML IVPB IV NR ×4 (11:12→13:50)
--- NOTE | 2016-07-14 11:21 | Diagnostic Imaging Report ---
Portable upright radiograph of the chest. INDICATION: Generalized weakness FINDINGS: There is a small right pleural effusion with minimal adjacent atelectasis. The heart size is mildly enlarged. No pneumothorax. The mediastinum and yani appear unremarkable. There is a pulse generator with a single cardiac lead seen. IMPRESSION: Small right pleural effusion and adjacent left basilar atelectasis. Dictated by: Dictated on workstation # [id number]
[2016-07-14 12:56] VITALS: BP 104/63
--- NOTE | 2016-07-14 12:57 | History & Physical-Hospitalist ---
HPI History of Present Illness: HPI/Chief Complaint CC: Cellulitis in complicated lower leg wound care patient HPI: This is a very complicated medical patient of Dr. Saravia that was last hospitalized 18 months ago for sepsis that has a long-standing history of lower extremity lymphedema with dermatitis that secondarily infects quite often there is managed by Dr. Ann wound care the presents to the emergency room due to weakness and increased lower leg pain and found to have complicated cellulitis in need of IV antibiotics of Zosyn and vancomycin and more supportive care for his psychosocial issues. Currently he is eating lunch and had apparently not been bathing regularly for the last several months requiring a major shower with intensive scrub down by the nursing staff prior to be admitted to room 410. Currently he is reporting his leg pain is 6 out of 10 but otherwise has no other major issues. PMH: PAST MEDICAL HISTORY: 1. Severe ischemic cardiomyopathy. 2. Insulin-dependent diabetes mellitus. 3. Diabetic peripheral neuropathy. 4. Cellulitis involving the legs. 5. Peripheral vascular disease. 6. Coronary artery disease. 7. Skin cancer. 8. Depression. 9. Osteoporosis. 10. Arthritis. 11. Amputation multiple toes left foot, Dr. Márquez podiatry. 12. Status post the fibular pacemaker placement left anterior chest. 13. History of ethanol use but teetotaler for many years. 14. Continues to smoke cigarettes despite advice to quit. Source: patient, RN/MD Exam Limitations: no limitations Date Seen 07/14/16 Attending Physician Idalia Schmid Michael R MD Referring Physician Date of Admission Jul 14, 2016 at 11:23 Home Medications & Allergies Home Medications Reviewed patient Home Medication Reconciliation Form Allergies Coded Allergies: No Known Drug Allergies (Verified , 03/08/08) Past Sulavlj-Qpeoer-Ghhxzm Hx Patient Social History Marrital Status: single Employed/Student: retired Smoking Status: Current Everyday Smoker Recent Foreign Travel: No Contact w/other who traveled: No Recent Hopitalizations: Yes Recent Infectious Disease Expo: No Immunizations Up To Date Tetanus Booster (TDap): Unknown Date of Pneumonia Vaccine: Apr 17, 2010 Seasonal Allergies Seasonal Allergies: No Surgeries HX Surgeries: Yes (ALL FROM PREVIOUS RECORD--PT IS POOR HISTORIAN) Surgeries: Appendectomy, Coronary Stent, Defibrillator, Orthopedic Respiratory Hx Respiratory Disorders: No Cardiovascular Hx Cardiovascular Disorders: Yes (Defibrillator, ALL FROM PREVIOUS RECORD--PT IS POOR HISTORIAN) Cardiac Disorders: Heart Attack Neurological Hx Neurological Disorders: No (UNABLE TO OBTAIN, PT POOR HISTORIAN) Reproductive System Hx Reproductive Disorders: No Sexually Transmitted Disease: No Genitourinary Hx Genitourinary Disorders: No Gastrointestinal Hx Gastrointestinal Disorders: No Gastrointestinal Disorders: Hepatitis Musculoskeletal Hx Musculoskeletal Disorders: Yes (ALL FROM PREVIOUS RECORD--PT IS POOR HISTORIAN) Musculoskeletal Disorders: Amputee, Osteoporosis, Arthritis, Rheumatoid Arthritis Endocrine Hx Endocrine Disorders: Yes (ALL FROM PREVIOUS RECORD--PT IS POOR HISTORIAN) Endocrine Disorders: Diabetes, Insulin dep HEENT HX ENT Disorders: No (ALL FROM PREVIOUS RECORD--PT IS POOR HISTORIAN) Hearing Impairment: Denies Cancer Hx Cancer: Yes (SQUAMOUS CELL, ALL FROM PREVIOUS RECORD--PT IS POOR HISTORIAN) Cancer: Skin Psychosocial Hx Psychiatric Problems: Yes (ALL FROM PREVIOUS RECORD--PT IS POOR HISTORIAN) Behavioral Health Disorders: Depression Integumentary HX Skin/Integumentary Disorder: Yes (Cellulitis, ALL FROM PREVIOUS RECORD--PT IS POOR HISTORIAN) Blood Transfusions Hx Blood Disorders: No Reviewed Nursing Assessment Reviewed/Agree w Nursing PMH: Yes Family Medical History Family Hx: Dysphagia Family history: Cardiovascular disease 03 MOTHER Family history: Hypertension 03 MOTHER 09 SISTER Myocardial infarction 03 MOTHER 09 SISTER 09 SISTER No Family History of: Family history: Diabetes mellitus Review of Systems Constitutional: see HPI EENTM: no symptoms reported Respiratory: no symptoms reported Cardiovascular: no symptoms reported Gastrointestinal: no symptoms reported Genitourinary: no symptoms reported Musculoskeletal: no symptoms reported Skin: see HPI change in color Psychiatric/Neurological: No Symptoms Reported All Other Systems Reviewed Negative Unless Noted: Yes Physical Exam Physical Exam Vital Signs Vital Sign - Last 12Hours 07/14/16 07/14/16 09:18 11:50 Temp 95.9 Pulse 83 Resp 18 B/P 111/74 Pulse Ox 96 O2 Delivery Room Air Capillary Refill : Less Than 3 Seconds General Appearance: No Apparent Distress WD/WN Chronically ill Eyes: Bilateral Eye Normal Inspection, Bilateral Eye PERRL HEENT: PERRL/EOMI Normal ENT Inspection Pharynx Normal Neck: Full Range of Motion Normal Inspection Non Tender Supple Carotid Bruit Respiratory: Chest Non Tender Lungs Clear Normal Breath Sounds No Accessory Muscle Use No Respiratory Distress Cardiovascular: Regular Rate, Rhythm No Edema No Gallop No JVD No Murmur Normal Peripheral Pulses Gastrointestinal: Normal Bowel Sounds No Organomegaly No Pulsatile Mass Non Tender Soft Distended Other (ascites) Back: Normal Inspection No CVA Tenderness No Vertebral Tenderness Extremity: Normal Capillary Refill Normal Inspection Normal Range of Motion Swelling Other (chronic lymphedema lower legs) Neurologic/Psychiatric: Alert Oriented x3 No Motor/Sensory Deficits Normal Mood/Affect Skin: Normal Color Warm/Dry Lymphatic: No Adenopathy Results Results/Procedures Lab Laboratory Tests 07/14/16 09:25 Assessment/Plan Admission Diagnosis Complicated cellulitis in a complex wound care patient of lower extremity lymphedema with chronic dermatitis Cirrhosis with ascites requires paracentesis periodically Continued smoker Systolic dysfunction ejection fraction of 10 %? managed by Dr. Cullen Noncompliance Hyponatremia CAD AF Assessment and Plan Empiric antibiotics with Zosyn and vancomycin Monitor labs Home meds Pain control Wound care library services assistant Improve hygiene while in hospital May need paracentesis for ascites IDALIA SCHMID DO Jul 14, 2016 12:56
[2016-07-14] MEDS ORDERED: CATHETER FLUSH 10 ML SYR IV PRN (13:30)
[2016-07-14] MEDS ORDERED: NORMAL SALINE (BAXTER MINI) 100 ML IV ONE (13:40)
[2016-07-14] MEDS ORDERED: PIPERACILLIN/TAZO 4.5 GM VIAL (ZOSYN) IV ONE (13:40)
[2016-07-14] MEDS: METOLAZONE 5 MG (ZAROXOLYN) TAB PO SCH (13:49)
[2016-07-14] MEDS: HYDROcodone/APAP 10 MG/325 MG (LORTAB) TAB PO PRN (13:50)
[2016-07-14] MEDS: NS IV 1000 ML 1,000 ML IV SCH (13:50)
[2016-07-14] MEDS ORDERED: PIPERACILLIN SODIUM/TAZOBACTAM 4.5 GM in NS (BAXTER MINI) 100 ML IV NR (14:00)
[2016-07-14 16:00] VITALS: BP 106/69
[2016-07-14] MEDS ORDERED: FLU TRIvalent (5 YOA+) 2016-17 (AFLURIA) 0.5 ML IM ONE (16:00)
--- NOTE | 2016-07-14 16:10 | Occ Therapy Progress Note ---
Therapy Progress Note Order received for OT eval and treat. Attempted evaluation at 1600. Pt in bed, declined to participated in therapy this date secondary to fatigue and 5/10 pain in LE. Pt agreeable to attempt therapy tomorrow. Will attempt to complete evaluation 07/15/15. 1, visit, refused ANDRAE XIONG OT Jul 14, 2016 16:10
[2016-07-14] MEDS: KCL 20 MEQ TAB (K-DUR) PO SCH (16:43)
[2016-07-14] MEDS: FUROSEMIDE 40 MG (LASIX) TAB PO SCH (16:43)
[2016-07-14] MEDS: PIPERACILLIN SODIUM/TAZOBACTAM 4.5 GM in NORMAL SALINE (BAXTER MINI) 100 ML IV SCH (19:52)
[2016-07-14 20:04] VITALS: BP 103/68
[2016-07-14] MEDS: MENTHOL/ZINC OXIDE (CALMOSEPTINE) 113 GM TUBE TOP SCH (21:00)
[2016-07-14] MEDS ORDERED: NON-FORMULARY MEDICATION 1 EA EA (Furosemide 80 MG) PO SCH (21:00)
[2016-07-14] MEDS: CARVEDILOL 3.125 MG (COREG) TABLET PO SCH (21:07)
[2016-07-14] MEDS: APIXABAN 5 MG (ELIQUIS) TABLET PO SCH (21:07)
[2016-07-14] MEDS ORDERED: VANCOMYCIN 1500 MG/NS 500 ML IVPB IV SCH ×2 (23:00)
[2016-07-14 23:58] LABS: BILIRUBIN,URINE NEGATIVE (NEGATIVE); KETONES,URINE NEGATIVE (NEGATIVE); LEUKOCYTE ESTERASE ,URINE 1+ (NEGATIVE); NITRITE,URINE NEGATIVE (NEGATIVE); PH,URINE 5 (5-9); PROTEIN,URINE 2+ (NEGATIVE); UROBILINOGEN,URINE 1 MG/DL (NORMAL)
[2016-07-15] VITALS: BP 110/59
[2016-07-15] MEDS: NS IV 1000 ML 1,000 ML IV SCH ×3 (00:01→20:21)
[2016-07-15 00:04] LABS: HYALINE CASTS, URINE 0-2 /LPF
[2016-07-15] MEDS: PIPERACILLIN SODIUM/TAZOBACTAM 4.5 GM in NORMAL SALINE (BAXTER MINI) 100 ML IV SCH ×3 (03:52→20:15)
[2016-07-15 04:00] VITALS: BP 98/61
[2016-07-15] MEDS: FUROSEMIDE 40 MG (LASIX) TAB PO SCH ×2 (05:28→16:39)
[2016-07-15] MEDS: KCL 20 MEQ TAB (K-DUR) PO SCH ×2 (05:28→16:39)
[2016-07-15 06:13] LABS: BASOPHILS % (AUTO) 0 % (0-10); EOSINOPHILS # (AUTO) 0.1 10^3/uL (0.0-0.3); EOSINOPHILS % (AUTO) 1 % (0-10); LYMPHOCYTES # (AUTO) 0.5 X 10^3 (1.0-4.0); LYMPHOCYTES % (AUTO) 5 % (12-44); MEAN CORPUSCULAR HEMOGLOBIN 26 PG (25-34); MEAN CORPUSCULAR HGB CONC 32 G/DL (32-36); MEAN CORPUSCULAR VOLUME 81 FL (80-99); MEAN PLATELET VOLUME 9.5 FL (7.4-10.4); MONOCYTES # (AUTO) 0.9 X 10^3 (0.0-1.0); MONOCYTES % (AUTO) 8 % (0-12); NEUTROPHILS # (AUTO) 9.5 X 10^3 (1.8-7.8); NEUTROPHILS % (AUTO) 87 % (42-75); PLATELET COUNT 178 10^3/uL (130-400); RED BLOOD COUNT 3.52 10^6/uL (4.35-5.85); WHITE BLOOD COUNT 10.9 10^3/uL (4.3-11.0)
[2016-07-15 06:32] LABS: ALANINE AMINOTRANSFERASE < 6 U/L (0-55); ALBUMIN 2.4 G/DL (3.2-4.5); ANION GAP 10 MMOL/L (5-14); ASPARTATE AMINO TRANSFERASE 8 U/L (5-34); BILIRUBIN,TOTAL 1.3 MG/DL (0.1-1.0); BLOOD UREA NITROGEN 32 MG/DL (7-18); BUN/CREATININE RATIO 29; CALCIUM 7.7 MG/DL (8.5-10.1); CARBON DIOXIDE 23 MMOL/L (21-32); CHLORIDE 96 MMOL/L (98-107); GFR ESTIMATED > 60; GLUCOSE 127 MG/DL (70-105); POTASSIUM 4.1 MMOL/L (3.6-5.0); SODIUM 129 MMOL/L (135-145); TOTAL PROTEIN 6.2 G/DL (6.4-8.2)
[2016-07-15] MEDS: ASPIRIN E.C. 81 MG (ECOTRIN) TAB PO SCH (08:00)
[2016-07-15] MEDS: CLOPIDOGREL 75 MG (PLAVIX) TABLET PO SCH (08:00)
[2016-07-15] MEDS: DIGOXIN 0.25 MG (LANOXIN) TAB PO SCH (08:00)
[2016-07-15] MEDS: lisINopril 5 MG (PRINIVIL) TABLET PO SCH (08:01)
[2016-07-15] MEDS: APIXABAN 5 MG (ELIQUIS) TABLET PO SCH ×2 (08:01→20:15)
[2016-07-15 08:29] VITALS: BP 99/61
[2016-07-15] MEDS ORDERED: NON-FORMULARY MEDICATION 1 EA EA (Lisinopril 2.5 MG) PO SCH (09:00)
--- NOTE | 2016-07-15 09:14 | Occupational Therapy Eval ---
OT Evaluation-General/PLF Medical Diagnosis Admission Date Jul 14, 2016 at 11:23 Medical Diagnosis: Cellulitis Onset Date: Jul 15, 2016 Therapy Diagnosis Therapy Diagnosis: Weakness, Decreased ADL skills Height/Weight Height (Feet): 6 Height (Inches): 0.00 Weight (Pounds): 244 Weight (Ounces): 2.0 Precautions Precautions/Isolations: Fall Prevention, Standard Precautions Safety Interventions: None Weight Bear Status Weight Bearing Restriction: Weight Bearing/Tolerated Referral Physician: Dr. Angel Referral Reason: Activity Tolerance, Self Care, Evaluation/Treatment, Strengthening/ROM Medical History Pertinent Medical History: CAD, DM, Heart Failure, Neuropathy, PVD Additional Medical History chemic, cardiomyopathy, peripheral neuropathy, PVD, amputation multiple toes left foot, coronary stent, nepatitis Current History Pt. states that he became very weak at home. States that he was not able to ambulate, or balance himself in standing. Reviewed History: Yes Social History Home: Single Level Current Living Status: Children Entry Into Home: Stairs With Railing Steps Into Home: 5 ADL-Prior Level of Function ADL PLOF Comments Pt. is somewhat vague and suspicious of OT's questions. States that he "can do everything." Explained purpose of OT to him, and need to make sure he is independent with daily tasks and safe with transfers before discharge. Pt. states that he drives, and has a 12 year old and 18 year old child at home. States that he was independent with bathing and dressing. States that he sleeps in his recliner, and uses a walker to get around his home. Pt. is educated about different therapies when ready for discharge, such as acute rehab vs home health vs outpt. Pt. very negative about home health. States that they are too restrictive. When asked if he would be interested in acute rehab, pt. states, "no!" States that he thinks he will be ready in 4 days to discharge. Concerned regarding pt's ability to ambulate and care for self. DME/Equipment: Bath Chair, Shower DME/Equipment Comments Pt. states that he has a walker, wheelchair, and cane. Drive Self: Yes OT Current Status Subjective Pt. reports 5/10 pain in left foot. Has already had pain medication. Appearance Pt. in bed eating breakfast when OT enters room. Reluctantly agrees to participate. OT offers pt. a shower. Pt. refuses. OT offers to assist pt. to get cleaned up on side of bed with spongebath. Pt. adament no. States, "they gave me a really good scrub down when I came in here." Mental Status/Objective Patient Orientation: Person, Place Pt. is somewhat vague with history but then upon talking further, is able to state full history regarding his children, and his need to care for them. States that their mother is not really in the picture. Current Glasses/Contacts: Yes Hand Dominance: Right Upper Extremity ROM WFL Upper Extremity Strength 3+/5 bilateral UE strength ADL-Treatment Functional [place] Measure 0=Not Assessed/NA 4=Minimal Assistance 1=Total Assistance 5=Supervision or Setup 2=Maximal Assistance 6=Modified [place] 3=Moderate Assistance 7=Complete IndependenceIRFPAI Quality Coding Scale 6 Independent with activity with or without an assistive device 5 Patient requires set up or clean up by helper. Patient completes activity by themselves 4 Supervision or touching assist (CGA). Saxon provide cues , steadying assist 3 The helper provides less than half the effort to complete the activity 2 The helper provides more than half the effort to complete the activity 1 Dependent. The helper does all the effort to complete an activity 7 Patient refused to complete or attempt activity 9 The patient did not perform the activity before the current illness or injury 88 Not attempted due to Medical conditions or safety concerns Eating (FIM): 5 (Pt. requires this OT to open jelly packages for him.) Lower Body Dressing (FIM): 2 (Pt. is unable to doff or don his socks because he cant bend over to his feet, or bring his feet up to him.) Transfers (B, C, W/C) (FIM): 4 (Pt. requires CGA at times to manuever left foot out and into bed. Requires increased time to transfer. Utilizes the HOB up and bedrails to transfer supine to sit and sit-supine. Min assist to stand. Pt. states that he sleeps in a recliner.) Other Treatments Pt. is issued theraband and therapy sponge to increase overall strength with UE strength. Education OT Patient Education: Home exercise program, Progress toward Goal/Update tx plan, Purpose of tx/functional activities, Reviewed precautions, Rehab process, Transfer techniques Teaching Recipient: Patient Teaching Methods: Demonstration, Discussion Response to Teaching: Verbalize Understanding, Return Demonstration OT Short Term Goals Short Term Goals Time Frame: Jul 22, 2016 Eating(FIM): 6 Grooming(FIM): 5 Bathing(FIM): 4 Upper Body Dressing(FIM): 5 Lower Body Dressing(FIM): 4 Toileting(FIM): 5 Transfers (B,C,W/C) (FIM): 5 Toilet/Commode Transfer(FIM): 5 Shower Transfer(FIM): 4 Additional Short Term Goals: 1-Demonstrate ADL Tasks, 2-Verbalize Understanding , 3-ImproveStrength/Lindsay 1=Demonstrate adherence to instructed precautions during ADL tasks. 2=Patient will verbalize/demonstrate understanding of assistive devices/ modifications for ADL. 3=Patient will improve strength/tolerance for activity to enable patient to perform ADL's. OT Cat Skinner Goals Half-Way Goals Time Frame: 2 weeks Eating (FIM): 6 Grooming(FIM): 6 Bathing(FIM): 5 Upper Body Dressing(FIM): 6 Lower Body Dressing(FIM): 6 Toileting(FIM): 6 Transfers (B,C,W/C) (FIM): 6 Toilet/Commode Transfer(FIM): 6 Shower Transfer(FIM): 5 Additional Goals: 1-Demonstrate ADL Tasks, 2-Verbalize Understanding, 3- ImproveStrength/Lindsay 1=Demonstrate adherence to instructed precautions during ADL tasks. 2=Patient will verbalize/demonstrate understanding of assistive devices/ modifications for ADL. 3=Patient will improve strength/tolerance for activity to enable patient to perform ADL's. OT Education/Plan Problem List/Assessment Assessment: Decreased Activ Tolerance, Dependent Transfers, Impaired Bed Mobility, Impaired Funct Balance, Impaired I ADL's, Impaired Self-Care Skills Discharge Recommendations Plan/Recommendations: Continue POC Therapy D/C Recommendations: Acute Rehab Target Placement This OT is concerned for pt to go home at this time. Pt. is adament that he is going home and that he will be "fine." Treatment Plan/Plan of Care Treatment,Training & Education: Yes Patient would benefit from OT for education, treatment and training to promote independence in ADL's, mobility, safety and/or upper extremity function for ADL' s. Plan of Care: ADL Retraining, Functional Mobility, UE Funct Exercise/Act Treatment Duration: Jul 29, 2016 # of days/week 5-6 Visits Per Week: 10-12 Agreement: Yes Rehab Potential: Fair Time/GCodes Start Time: 08:30 Stop Time: 09:10 Total Time Billed (hr/min): 40 Billed Treatment Time 1, EVLowcomplexity x 10minutes, FA x 30minutes PHYLLIS KOCH OT Jul 15, 2016 09:14
[2016-07-15] MEDS: CARVEDILOL 3.125 MG (COREG) TABLET PO SCH ×2 (09:42→21:00)
[2016-07-15] MEDS: MENTHOL/ZINC OXIDE (CALMOSEPTINE) 113 GM TUBE TOP SCH ×2 (09:44→20:19)
[2016-07-15] MEDS ORDERED: TROUGH ORDER-PHARMACY XX NR ×2 (10:00→22:00)
[2016-07-15 11:09] LABS: BILIRUBIN,URINE NEGATIVE (NEGATIVE); KETONES,URINE NEGATIVE (NEGATIVE); LEUKOCYTE ESTERASE ,URINE NEGATIVE (NEGATIVE); NITRITE,URINE NEGATIVE (NEGATIVE); PH,URINE 5 (5-9); PROTEIN,URINE NEGATIVE (NEGATIVE); UROBILINOGEN,URINE NORMAL (NORMAL)
--- NOTE | 2016-07-15 11:53 | Consultation ---
History of Present Illness History of Present Illness Patient Consulted On(hermelinda/time) 07/15/16 11:47 Date of Admission History of Present Illness Surgery asked to consult regarding Left foot cellulitis, possible need for debridement. HPI: This is a very complicated medical patient of Dr. Saravia that was last hospitalized 18 months ago for sepsis that has a long-standing history of lower extremity lymphedema with dermatitis that secondarily infects quite often there is managed by Dr. Ann wound care the presents to the emergency room due to weakness and increased lower leg pain and found to have complicated cellulitis in need of IV antibiotics of Zosyn and vancomycin and more supportive care for his psychosocial issues. Currently he is eating lunch and had apparently not been bathing regularly for the last several months requiring a major shower with intensive scrub down by the nursing staff prior to be admitted to room 410. Currently he is reporting his leg pain is 6 out of 10 but otherwise has no other major issues. He states pain is about the same as when he came in, not increasing. Pt doesn' t have much feeling down in foot. Allergies and Home Medications Allergies Coded Allergies: No Known Drug Allergies (Verified , 07/14/16) Home Medications Apixaban 5 Mg Tablet 5 MG PO BID (Reported) Aspirin 81 Mg Tabec 81 MG PO DAILY (Reported) Carvedilol 6.25 Mg Tablet 3.125 MG PO BID (Reported) LAST FILLED 05/22/16 #30 / TAKES 1/2 OF A (6.25 MG) TABLET Clopidogrel Bisulfate 75 Mg Tablet 75 MG PO DAILY (Reported) Digoxin 250 Mcg Tablet 250 MCG PO DAILY (Reported) Furosemide 80 Mg Tablet 80 MG PO BID (Reported) Lisinopril 2.5 Mg Tablet 2.5 MG PO DAILY (Reported) Metolazone 5 Mg Tablet 5 MG PO Q48H (Reported) Potassium Chloride 20 Meq Tab.er.prt 20 MEQ PO BID (Reported) Past Miqdqon-Yoljhb-Osqtpw Hx Patient Social History Alcohol Use: Past History Recreational Drug Use: No Smoking Status: Current Everyday Smoker Type Used: Cigarettes Recent Foreign Travel: No Contact w/Someone Who Travel: No Recent Infectious Disease Expo: No Recent Hopitalizations: Yes Physical Abuse Screen: No Sexual Abuse: No Immunizations Up To Date Tetanus Booster (TDap): Unknown Date of Pneumonia Vaccine: Apr 17, 2010 Seasonal Allergies Seasonal Allergies: No Surgeries HX Surgeries: Yes (ALL FROM PREVIOUS RECORD--PT IS POOR HISTORIAN) Surgeries: Appendectomy, Coronary Stent, Defibrillator, Orthopedic Respiratory Hx Respiratory Disorders: No Cardiovascular Hx Cardiac Disorders: Yes (Defibrillator, ALL FROM PREVIOUS RECORD--PT IS POOR HISTORIAN) Cardiac Disorders: Heart Attack Neurological Hx Neurological Disorders: No (UNABLE TO OBTAIN, PT POOR HISTORIAN) Reproductive System Hx Reproductive Disorders: No Sexually Transmitted Disease: No HIV/AIDS: No Genitourinary Hx Genitourinary Disorders: No Gastrointestinal Hx Gastrointestinal Disorders: Yes Gastrointestinal Disorders: Hepatitis Musculoskeletal Hx Musculoskeletal Disorders: Yes (ALL FROM PREVIOUS RECORD--PT IS POOR HISTORIAN) Musculoskeletal Disorders: Amputee, Osteoporosis, Arthritis, Rheumatoid Arthritis Endocrine Hx Endocrine Disorders: Yes (ALL FROM PREVIOUS RECORD--PT IS POOR HISTORIAN) Endocrine Disorders: Diabetes, Insulin dep HEENT HX ENT Disorders: No (ALL FROM PREVIOUS RECORD--PT IS POOR HISTORIAN) Loss of Vision: Denies Hearing Impairment: Denies Cancer Hx Cancer: Yes (SQUAMOUS CELL, ALL FROM PREVIOUS RECORD--PT IS POOR HISTORIAN) Cancer: Skin Psychosocial Hx Psychiatric Problems: Yes (ALL FROM PREVIOUS RECORD--PT IS POOR HISTORIAN) Behavioral Health Disorders: Depression Integumentary HX Skin/Integumentary Disorder: Yes (Cellulitis, ALL FROM PREVIOUS RECORD--PT IS POOR HISTORIAN) Skin/Integumentary Disorders: Recent Skin Changes Blood Transfusions Hx Blood Disorders: No Adverse Reaction to a Blood Tr: No Reviewed Nursing Assessment Reviewed/Agree w Nursing PMH: Yes Family Medical History Significant Family History: Heart Disease, Hypertension Family Medial History: Dysphagia Family history: Cardiovascular disease 03 MOTHER Family history: Hypertension 03 MOTHER 09 SISTER Myocardial infarction 03 MOTHER 09 SISTER 09 SISTER No Family History of: Family history: Diabetes mellitus Review of Systems-General Constitutional: No chills, No diaphoresis, malaise weakness EENTM: hearing loss vision lossNo throat swelling Respiratory: No hemoptysis, No short of breath Cardiovascular: No chest pain, edema Gastrointestinal: No abdominal pain, No hematemesis, No melena Musculoskeletal: see HPI Physical Exam-General Problems Physical Exam Vital Signs Vital Sign - Last 12Hours 07/14/16 07/14/16 09:18 11:50 Temp 95.9 Pulse 83 Resp 18 B/P 111/74 Pulse Ox 96 O2 Delivery Room Air Capillary Refill : Less Than 3 Seconds General Appearance: WD/WN no apparent distress Eyes: Bilateral Eye EOMI, Bilateral Eye PERRL HEENT: pharynx normalNo scleral icterus (R), No scleral icterus (L) Neck: non-tender supple normal inspection Respiratory: lungs clear no respiratory distress no accessory muscle use Cardiovascular: regular rate, rhythm no murmur Gastrointestinal: normal bowel sounds no organomegaly no pulsatile mass distended Extremities: No no calf tenderness, pedal edema (erythema and edema, with dry flaking skin both lower extremities, below knees. Left foot complete metatarsul amputation. Small ulcer distal, small ulcer on heal and left lateral aspect just below ankle has large area of necrotic black skin and tissue , foul smelling) Skin: No diaphoresis, No mottled, pallor tattoos/piercings Lymphatic: no adenopathy (neck or supraclavicular) Data Review Labs Laboratory Tests 07/14/16 23:45: Urine Amorphous Sediment FEW EDY URATESH, Urine Bacteria MODERATEH, Urine Bilirubin NEGATIVE, Urine Casts PRESENT, Urine Clarity VERY CLOUDYH, Urine Color YELLOW, Urine Crystals PRESENTH, Urine Culture Indicated YES, Urine Glucose (UA) NEGATIVE, Urine Hyaline Casts 0-2H, Urine Ketones NEGATIVE, Urine Leukocyte Esterase 1+H, Urine Mucus SMALLH, Urine Nitrite NEGATIVE, Urine Protein 2+H, Urine RBC RARE, Urine RBC (Auto) 1+H, Urine Specific [place] 1.015L , Urine Squamous Epithelial Cells 2-5, Urine Urobilinogen 1, Urine WBC 2-5, Urine pH 5 07/15/16 05:55: Alanine Aminotransferase (ALT/SGPT) < 6, Albumin 2.4L, Alkaline Phosphatase 97, Anion Gap 10, Aspartate Amino Transf (AST/SGOT) 8, BUN/Creatinine Ratio 29, Basophils # (Auto) 0.0, Basophils (%) (Auto) 0, Blood Urea Nitrogen 32H, Calcium Level 7.7L, Carbon Dioxide Level 23, Chloride Level 96L, Creatinine 1.10 , Eosinophils # (Auto) 0.1, Eosinophils (%) (Auto) 1, Estimat Glomerular Filtration Rate > 60, Glucose Level 127H, Hematocrit 29L, Hemoglobin 9.1L, Lymphocytes # (Auto) 0.5L, Lymphocytes (%) (Auto) 5L, Mean Corpuscular Hemoglobin 26, Mean Corpuscular Hemoglobin Concent 32, Mean Corpuscular Volume 81, Mean Platelet Volume 9.5, Monocytes # (Auto) 0.9, Monocytes (%) (Auto) 8, Neutrophils # (Auto) 9.5H, Neutrophils (%) (Auto) 87H, Platelet Count 178, Potassium Level 4.1, Red Blood Count 3.52L, Red Cell Distribution Width 16.0H, Sodium Level 129L, Total Bilirubin 1.3H, Total Protein 6.2L, White Blood Count 10.9 07/15/16 09:45: Vancomycin Level Trough 24.4H 07/15/16 10:45: Urine Bacteria NEGATIVE, Urine Bilirubin NEGATIVE, Urine Casts PRESENT, Urine Clarity CLEAR, Urine Color YELLOW, Urine Crystals NONE, Urine Culture Indicated NO, Urine Glucose (UA) NEGATIVE, Urine Hyaline Casts 5-10H, Urine Ketones NEGATIVE, Urine Leukocyte Esterase NEGATIVE, Urine Mucus NEGATIVE, Urine Nitrite NEGATIVE, Urine Protein NEGATIVE, Urine RBC RARE, Urine RBC (Auto) NEGATIVE, Urine Specific [place] 1.015L, Urine Squamous Epithelial Cells NONE, Urine Urobilinogen NORMAL, Urine WBC NONE, Urine pH 5 Microbiology 07/14/16 Blood Culture - Preliminary, Resulted Gram Negative Juan M 07/14/16 Urine Culture - Preliminary, Resulted Assessment/Plan Assessment/Plan Assessment/Plan Cellulitis probable gangrene of Left foot, with 2 healing ulcers on same foot. - sharp debridement at bedside - IV abx - wound VAC placement - foot and ankle xray r/o osteomyelitis - ?Podiatry consult DM, CAD, Severe ischemic Cardiomyopathy - max medical management Clinical Quality Measures DVT/VTE Risk/Contraindication: Risk Factor Score Per Nursin RFS Level Per Nursing on Admit: 4+=Very High NINA CONTE DO Jul 15, 2016 11:53
[2016-07-15] MEDS ORDERED: NORMAL SALINE (BAXTER MINI) 100 ML IV ONE (12:01)
[2016-07-15] MEDS ORDERED: PIPERACILLIN/TAZO 4.5 GM VIAL (ZOSYN) IV ONE (12:01)
--- NOTE | 2016-07-15 12:02 | Progress Note-Post Operative ---
Post-Operative Progess Note Product Development Actuary None Pre-Operative Diagnosis Necrotic tissue left foot, probable gangrene Post-Operative Diagnosis same Post-Op Procedure Note Date of Procedure: Jul 15, 2016 Name of Procedure: Sharp debridement necrotic tissue left foot Procedure Note/Findings Able to visualize tendon through wound. Anesthesia Type None Estimated blood loss (mL): scant [id number], with plan for wound VAC Specimen(s) collected none NINA CONTE DO Jul 15, 2016 12:02
[2016-07-15 12:54] VITALS: BP 97/57
--- NOTE | 2016-07-15 13:43 | Diagnostic Imaging Report ---
INDICATION: Edema, wound necrosis. FINDINGS: There is soft tissue gas at the plantar aspect at the level of the heel as well as plantar aspect of the midfoot. There are arthritic changes to the ankle joint with old avulsion off the tip of the fibula. IMPRESSION: The osseous ankle nonacute. There are areas of soft tissue irregularity and gas in the plantar heel and midfoot. Dictated by: Dictated on workstation # [id number]
--- NOTE | 2016-07-15 14:24 | Progress Note-Hospitalist ---
Standard Progress Note Progress Notes/Assess & Plan Date Seen 07/15/16 Diagnosis Complicated cellulitis in a complex wound care patient of lower extremity lymphedema with chronic dermatitis Cirrhosis with ascites requires paracentesis periodically Continued smoker Systolic dysfunction ejection fraction of 10 %? managed by Dr. Cullen Noncompliance Hyponatremia CAD AF Assess & Plan/Chief Complaint The patient is a 65-year-old white male with long-standing problems of diabetic peripheral neuropathy and vascular disease. He had amputation which appears to be distal transmetatarsal of the toes of the left foot 2 years ago. He has been seeing Dr. Ann in the wound care clinic. He states this has been on a monthly basis. He last saw him there on 06/30. He reports at that time there was no open wound on the amputation site. He states that at about Sunday of this week a wound opened up and he began to have redness over the foot. He presented to the emergency room 07/14 with fever and apparent cellulitis. His hygiene was reported to be quite poor and he was quite odiferous and required an immediate bath on admission. He also reports that he has had ascites for some years and has required an occasional paracentesis. He has a severe ischemic cardiomyopathy with an ejection fraction stated to be 10 percent and has an implantable defibrillator Physical exam: He is cleaned up and presentable. Lungs are distant but clear. CV is poorly heard. Abdomen is distended and there is a palpable fluid wave. Extremities show bilateral erythema and scaling to the junction of the upper third of the tibias. The toes are missing on the left foot and there is an open draining area with greater erythema at the vicinity of the second or third metatarsal. Impression: Chronic cellulitis of both lower extremities. 2.previous amputation transmetatarsal left lower extremity. 3.apparent open wound and evidence of acute cellulitis left foot. Laboratory reports blood cultures positive for staph aureus apparently not MRSA. As well as a gram-negative pierre. [facility] Laboratory Tests 07/14/16 09:25 07/15/16 05:55 SHANE SKINNER MD Jul 15, 2016 14:24
--- NOTE | 2016-07-15 15:05 | Diagnostic Imaging Report ---
INDICATION: Infection. FINDINGS: There is a wound VAC present with soft tissue gas about the midfoot along its lateral aspect dissecting distally to the base of the eroded residual third metatarsal. There is forefoot amputation. There is disorganization and severe subluxations at the residual tarsometatarsal joints. There is irregular appearance of the bases of the second, third, fourth and fifth metatarsals as well as the residual cuneiforms. Also show some lucency. Gas in the plantar aspect of the hindfoot just inferior to the calcaneus is present. There is calcaneal spurring but no calcaneal destruction. IMPRESSION: Swelling and diffuse soft tissue gas dissecting along the mid and residual forefoot, previous amputation. This finding is very strongly suggestive of osteomyelitis, most notably at the residual third metatarsal but involvement at the bases of the second through fifth metatarsals and tarsal bones suspected, as described. Gas in the plantar hindfoot noted with no obvious calcaneal erosion. There is atherosclerotic disease. Dictated by: Dictated on workstation # [id number]
[2016-07-15 16:07] VITALS: BP 99/60
[2016-07-15 20:21] VITALS: BP 93/59
--- NOTE | 2016-07-15 20:31 | Wound Care Progress Note ---
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 The patient has ischemic cardiomyopathy, CHF, ascites, and chronic BLE lymphedema. He has presented with worsening infection of L foot , cellulitis and necrosis of the lateral proximal foot. The cellulitis is improved with IV Vancomycin and Zosyn and debridement of the necrotic area per Dr. Mann. Review of Systems General: No Chills, Malaise Pulmonary: Dyspnea Cardiovascular: No: Chest Pain Neurological: : Weakness Objective Exam Last Set of Vital Signs Vital Signs Date Time Temp Pulse Resp B/P Pulse Ox O2 Delivery O2 Flow Rate FiO2 07/15/16 16:07 97.7 74 16 99/60 95 Room Air Capillary Refill : Less Than 3 Seconds I&O Bad tableGeneral: Alert, Oriented X3, Mild Distress Lungs: Normal Air Movement Abdomen: Other (Decreased ascites since admission.) Skin: Other (Stable ulcerations of L foot, with debrided area of heel dressed with NPWT foam.) Results Lab Laboratory Tests 07/14/16 23:45: Urine Amorphous Sediment FEW EDY URATESH, Urine Bacteria MODERATEH, Urine Bilirubin NEGATIVE, Urine Casts PRESENT, Urine Clarity VERY CLOUDYH, Urine Color YELLOW, Urine Crystals PRESENTH, Urine Culture Indicated YES, Urine Glucose (UA) NEGATIVE, Urine Hyaline Casts 0-2H, Urine Ketones NEGATIVE, Urine Leukocyte Esterase 1+H, Urine Mucus SMALLH, Urine Nitrite NEGATIVE, Urine Protein 2+H, Urine RBC RARE, Urine RBC (Auto) 1+H, Urine Specific [place] 1.015L , Urine Squamous Epithelial Cells 2-5, Urine Urobilinogen 1, Urine WBC 2-5, Urine pH 5 07/15/16 05:55: Alanine Aminotransferase (ALT/SGPT) < 6, Albumin 2.4L, Alkaline Phosphatase 97, Anion Gap 10, Aspartate Amino Transf (AST/SGOT) 8, BUN/Creatinine Ratio 29, Basophils # (Auto) 0.0, Basophils (%) (Auto) 0, Blood Urea Nitrogen 32H, Calcium Level 7.7L, Carbon Dioxide Level 23, Chloride Level 96L, Creatinine 1.10 , Eosinophils # (Auto) 0.1, Eosinophils (%) (Auto) 1, Estimat Glomerular Filtration Rate > 60, Glucose Level 127H, Hematocrit 29L, Hemoglobin 9.1L, Lymphocytes # (Auto) 0.5L, Lymphocytes (%) (Auto) 5L, Mean Corpuscular Hemoglobin 26, Mean Corpuscular Hemoglobin Concent 32, Mean Corpuscular Volume 81, Mean Platelet Volume 9.5, Monocytes # (Auto) 0.9, Monocytes (%) (Auto) 8, Neutrophils # (Auto) 9.5H, Neutrophils (%) (Auto) 87H, Platelet Count 178, Potassium Level 4.1, Red Blood Count 3.52L, Red Cell Distribution Width 16.0H, Sodium Level 129L, Total Bilirubin 1.3H, Total Protein 6.2L, White Blood Count 10.9 07/15/16 09:45: Vancomycin Level Trough 24.4H 07/15/16 10:45: Urine Bacteria NEGATIVE, Urine Bilirubin NEGATIVE, Urine Casts PRESENT, Urine Clarity CLEAR, Urine Color YELLOW, Urine Crystals NONE, Urine Culture Indicated NO, Urine Glucose (UA) NEGATIVE, Urine Hyaline Casts 5-10H, Urine Ketones NEGATIVE, Urine Leukocyte Esterase NEGATIVE, Urine Mucus NEGATIVE, Urine Nitrite NEGATIVE, Urine Protein NEGATIVE, Urine RBC RARE, Urine RBC (Auto) NEGATIVE, Urine Specific [place] 1.015L, Urine Squamous Epithelial Cells NONE, Urine Urobilinogen NORMAL, Urine WBC NONE, Urine pH 5 Microbiology 07/14/16 Blood Culture - Preliminary, Resulted Gram Negative Juan M 07/14/16 Urine Culture - Preliminary, Resulted 07/14/16 Gram Stain - Final, Resulted 07/14/16 Wound Culture - Preliminary, Resulted Staphylococcus Aureus Proteus Mirabilis Assessment/Plan Assessment/Plan Assessment/Plan 1. Diabetic foot ulcers, L foot, x 2, Grade 3. 2. Peripheral arterial disease L leg with chronic ischemia. 3. Congestive heart failure. 4. Sacral and perineal pressure ulcers, stage 2. Plan: Will follow. Dressings ordered. YAIR HERNANDEZ MD Jul 15, 2016 20:31
[2016-07-16] VITALS: BP 97/60
[2016-07-16] MEDS: VANCOMYCIN 1 GM/NS 250 ML IVPB IV SCH ×4 (00:05→11:20)
[2016-07-16] MEDS: PIPERACILLIN SODIUM/TAZOBACTAM 4.5 GM in NORMAL SALINE (BAXTER MINI) 100 ML IV SCH ×3 (03:51→20:17)
[2016-07-16 04:00] VITALS: BP 95/62
[2016-07-16] MEDS: KCL 20 MEQ TAB (K-DUR) PO SCH ×2 (05:52→16:38)
[2016-07-16] MEDS: HYDROcodone/APAP 10 MG/325 MG (LORTAB) TAB PO PRN (05:52)
[2016-07-16] MEDS: FUROSEMIDE 40 MG (LASIX) TAB PO SCH ×2 (05:52→16:38)
[2016-07-16 05:53] LABS: BASOPHILS % (AUTO) 0 % (0-10); EOSINOPHILS # (AUTO) 0.1 10^3/uL (0.0-0.3); EOSINOPHILS % (AUTO) 1 % (0-10); LYMPHOCYTES # (AUTO) 0.5 X 10^3 (1.0-4.0); LYMPHOCYTES % (AUTO) 6 % (12-44); MEAN CORPUSCULAR HEMOGLOBIN 26 PG (25-34); MEAN CORPUSCULAR HGB CONC 32 G/DL (32-36); MEAN CORPUSCULAR VOLUME 81 FL (80-99); MEAN PLATELET VOLUME 9.8 FL (7.4-10.4); MONOCYTES # (AUTO) 0.7 X 10^3 (0.0-1.0); MONOCYTES % (AUTO) 7 % (0-12); NEUTROPHILS # (AUTO) 8.4 X 10^3 (1.8-7.8); NEUTROPHILS % (AUTO) 87 % (42-75); PLATELET COUNT 196 10^3/uL (130-400); RED BLOOD COUNT 3.54 10^6/uL (4.35-5.85); RED CELL DISTRIBUTION WIDTH 16.1 % (10.0-14.5); WHITE BLOOD COUNT 9.6 10^3/uL (4.3-11.0)
[2016-07-16 06:29] LABS: ALANINE AMINOTRANSFERASE < 6 U/L (0-55); ALBUMIN 2.3 G/DL (3.2-4.5); ANION GAP 8 MMOL/L (5-14); ASPARTATE AMINO TRANSFERASE 7 U/L (5-34); BILIRUBIN,TOTAL 1.1 MG/DL (0.1-1.0); BLOOD UREA NITROGEN 32 MG/DL (7-18); BUN/CREATININE RATIO 26; CALCIUM 7.6 MG/DL (8.5-10.1); CARBON DIOXIDE 24 MMOL/L (21-32); CHLORIDE 97 MMOL/L (98-107); CREATININE SERUM 1.22 MG/DL (0.60-1.30); GFR ESTIMATED 59; GLUCOSE 152 MG/DL (70-105); POTASSIUM 3.6 MMOL/L (3.6-5.0); SODIUM 129 MMOL/L (135-145); TOTAL PROTEIN 6.4 G/DL (6.4-8.2)
[2016-07-16 08:10] VITALS: BP 90/58
[2016-07-16] MEDS: NS IV 1000 ML 1,000 ML IV SCH ×3 (08:52→22:45)
[2016-07-16] MEDS: ASPIRIN E.C. 81 MG (ECOTRIN) TAB PO SCH (08:53)
[2016-07-16] MEDS: APIXABAN 5 MG (ELIQUIS) TABLET PO SCH ×2 (08:53→21:54)
[2016-07-16] MEDS: CLOPIDOGREL 75 MG (PLAVIX) TABLET PO SCH (08:53)
[2016-07-16] MEDS: CARVEDILOL 3.125 MG (COREG) TABLET PO SCH ×2 (08:53→21:54)
[2016-07-16] MEDS: METOLAZONE 5 MG (ZAROXOLYN) TAB PO SCH (08:54)
[2016-07-16] MEDS: lisINopril 5 MG (PRINIVIL) TABLET PO SCH (08:54)
[2016-07-16] MEDS: DIGOXIN 0.25 MG (LANOXIN) TAB PO SCH (08:56)
[2016-07-16] MEDS: MENTHOL/ZINC OXIDE (CALMOSEPTINE) 113 GM TUBE TOP SCH ×2 (08:57→21:55)
[2016-07-16 12:37] VITALS: BP 86/53
[2016-07-16] MEDS: LEVOFLOXACIN 750 MG/150 ML IV 150 ML IV SCH (13:20)
--- NOTE | 2016-07-16 13:20 | Progress Note ---
Subjective Subjective/Events-last exam Pt seen and examined no new complaints. He states foot feels the same. Review of Systems General: No Chills, No Night Sweats Cardiovascular: No: Chest Pain Gastrointestinal: No: Nausea, Vomiting Objective Exam Vital Signs Date Time Temp Pulse Resp B/P Pulse Ox O2 Delivery O2 Flow Rate FiO2 07/16/16 12:37 95.3 64 18 86/53 95 Room Air 07/16/16 09:00 Room Air 07/16/16 08:10 96.9 63 16 90/58 98 Room Air 07/16/16 04:00 97.5 96 22 95/62 98 Room Air 07/16/16 00:00 97.8 68 22 97/60 95 Room Air 07/15/16 21:00 Room Air 07/15/16 20:21 97.5 68 16 93/59 96 Room Air 07/15/16 16:07 97.7 74 16 99/60 95 Room Air I & O 07/16/16 07:00 Intake Total 3400 ml Output Total 2875 ml Balance 525 ml Capillary Refill : Less Than 3 SecondsLess Than 3 Seconds General Appearance: No Apparent Distress WD/WN Chronically ill HEENT: PERRL/EOMI Neck: Non Tender Supple Carotid Bruit Respiratory: Chest Non Tender Lungs Clear Normal Breath Sounds No Accessory Muscle Use No Respiratory Distress Cardiovascular: Regular Rate, Rhythm No Edema No Gallop No JVD No Murmur Normal Peripheral Pulses Gastrointestinal: distended Extremity: Pedal Edema Swelling Other (chronic lymphedema lower legs. Wound VAC in place on left foot) Neurologic/Psychiatric: Alert Oriented x3 Depressed Affect Lymphatic: No Adenopathy Results Lab Laboratory Tests 07/15/16 21:06: Glucometer 150H 07/15/16 21:44: Vancomycin Level Trough 18.9 07/16/16 05:25: Alanine Aminotransferase (ALT/SGPT) < 6, Albumin 2.3L, Alkaline Phosphatase 85, Anion Gap 8, Aspartate Amino Transf (AST/SGOT) 7, BUN/Creatinine Ratio 26, Basophils # (Auto) 0.0, Basophils (%) (Auto) 0, Blood Urea Nitrogen 32H, Calcium Level 7.6L, Carbon Dioxide Level 24, Chloride Level 97L, Creatinine 1.22 , Eosinophils # (Auto) 0.1, Eosinophils (%) (Auto) 1, Estimat Glomerular Filtration Rate 59, Glucose Level 152H, Hematocrit 29L, Hemoglobin 9.1L, Lymphocytes # (Auto) 0.5L, Lymphocytes (%) (Auto) 6L, Mean Corpuscular Hemoglobin 26, Mean Corpuscular Hemoglobin Concent 32, Mean Corpuscular Volume 81, Mean Platelet Volume 9.8, Monocytes # (Auto) 0.7, Monocytes (%) (Auto) 7, Neutrophils # (Auto) 8.4H, Neutrophils (%) (Auto) 87H, Platelet Count 196, Potassium Level 3.6, Red Blood Count 3.54L, Red Cell Distribution Width 16.1H, Sodium Level 129L, Total Bilirubin 1.1H, Total Protein 6.4, White Blood Count 9.6 07/16/16 05:29: Glucometer 154H 07/16/16 10:45: Glucometer 163H Microbiology 07/14/16 Blood Culture - Preliminary, Resulted Proteus Mirabilis 07/14/16 Urine Culture - Preliminary, Resulted 07/14/16 Gram Stain - Final, Resulted 07/14/16 Wound Culture - Preliminary, Resulted Staphylococcus Aureus Proteus Mirabilis Gram Negative Juan M Assessment/Plan Assessment/Plan Assessment/Plan Cellulitis probable gangrene of Left foot, with 2 healing ulcers on same foot. -S/P sharp debridement at bedside - IV abx - wound VAC will be changed 07/17 pt may need further Debridement at that time Osteomyelitis - according to Radiologist foot xray looks like it is probably osteomyelitis - ?Podiatry consult possible Ortho consult, pt may need BKA DM, CAD, Severe ischemic Cardiomyopathy - max medical management Clinical Quality Measures DVT/VTE Risk/Contraindication: Risk Factor Score Per Nursin RFS Level Per Nursing on Admit: 4+=Very High NINA CONTE DO Jul 16, 2016 13:20
--- NOTE | 2016-07-16 14:29 | Progress Note-Hospitalist ---
Standard Progress Note Progress Notes/Assess & Plan Date Seen 07/16/16 Diagnosis Complicated cellulitis in a complex wound care patient of lower extremity lymphedema with chronic dermatitis Cirrhosis with ascites requires paracentesis periodically Continued smoker Systolic dysfunction ejection fraction of 10 %? managed by Dr. Cullen Noncompliance Hyponatremia CAD AF Assess & Plan/Chief Complaint The patient had no particular complaints at the time of my visit. His lunch had just arrived and he appeared more interested in it and he was in discussion of his foot. The foot itself is not particularly painful today. He has no other concerns. He is hoping that his hospital stay will not be prolonged. Physical exam: He was sitting at the bedside and was asked to lie back so that I might see his feet better. He was very poorly able to manage that from a physical standpoint. The left foot erythema looks less angry than yesterday. It appears that there is a mild decrease in swelling as well. Lungs are clear to auscultation. CV was regular. Abdomen has a fluid wave and appears to be somewhat tighter than yesterday. Impression: Sepsis by virtue of blood cultures growing 2 separate organisms. 2.cellulitis left foot. 3.chronic ischemia left foot. 4.diabetes mellitus. 5.severe ischemic cardiomyopathy with pacer/defibrillator. 6.ascites new Plan: Adjust antibiotics to match sensitivities. Continue to manage in conjunction with wound care and general surgery Labs Laboratory Tests 07/15/16 05:55 07/16/16 05:25 SHANE SKINNER MD Jul 16, 2016 14:29
[2016-07-16 16:07] VITALS: BP 80/51
[2016-07-16 20:14] VITALS: BP 91/55
[2016-07-17] VITALS: BP 96/53
[2016-07-17 04:00] VITALS: BP 93/54
[2016-07-17] MEDS: PIPERACILLIN SODIUM/TAZOBACTAM 4.5 GM in NORMAL SALINE (BAXTER MINI) 100 ML IV SCH ×3 (04:51→19:59)
[2016-07-17] MEDS: FUROSEMIDE 40 MG (LASIX) TAB PO SCH ×2 (06:14→17:11)
[2016-07-17] MEDS: KCL 20 MEQ TAB (K-DUR) PO SCH ×2 (06:14→17:11)
[2016-07-17 08:18] VITALS: BP 97/67
--- NOTE | 2016-07-17 08:23 | OPERATIVE REPORT ---
PROCEDURE PHYSICIAN: NINA CONTE DATE OF PROCEDURE: 07/15/2016 PREOPERATIVE DIAGNOSIS: Necrotic tissue of left foot probable gangrene. POSTOPERATIVE DIAGNOSIS: Necrotic tissue of left foot probable gangrene. PROCEDURE: Sharp debridement of necrotic tissue, left foot. SURGEON: Dr. Johnathan VALLEJO ASSIST: None. ANESTHESIA: None. BLOOD LOSS: Scant. INDICATIONS FOR THE PROCEDURE: The patient is a 65-year-old male who has a necrotic area on the left foot, looks like gangrene, black tissue and an open wound as well as black necrotic skin. FINDINGS: The patient had black necrotic skin, necrotic tissue. This was debrided down to fresh tissue and could see tendon. PROCEDURE NOTE: After informed consent was obtained in the patient's room in his bed, attempted using scissors and then used a number 10 blade for sharp dissection. I started cutting out necrotic tissue, cutting off of skin as well as necrotic tissue in this open wound. The wound measured about 5 cm x 5 cm. I cut away down to fresh, slightly bleeding tissue. I actually could see a tendon in the foot. This was then irrigated with saline, 4x4 placed with plan for a VAC. The patient tolerated this procedure and ordered x-rays at the end to rule out osteomyelitis. Job ID: [id number] Dictated Date: 07/15/2016 12:02:32 Occup Therapist Date: 07/17/2016 08:18:13 / kash
[2016-07-17] MEDS: APIXABAN 5 MG (ELIQUIS) TABLET PO SCH ×2 (08:43→21:10)
[2016-07-17] MEDS: CARVEDILOL 3.125 MG (COREG) TABLET PO SCH ×2 (08:44→21:10)
[2016-07-17] MEDS: DIGOXIN 0.25 MG (LANOXIN) TAB PO SCH (08:44)
[2016-07-17] MEDS: CLOPIDOGREL 75 MG (PLAVIX) TABLET PO SCH (08:44)
[2016-07-17] MEDS: lisINopril 5 MG (PRINIVIL) TABLET PO SCH (08:44)
[2016-07-17] MEDS: ASPIRIN E.C. 81 MG (ECOTRIN) TAB PO SCH (08:44)
[2016-07-17] MEDS: MENTHOL/ZINC OXIDE (CALMOSEPTINE) 113 GM TUBE TOP SCH ×2 (08:45→21:10)
[2016-07-17] MEDS: NS IV 1000 ML 1,000 ML IV SCH ×2 (08:49→20:00)
--- NOTE | 2016-07-17 10:32 | Progress Note ---
Subjective Subjective/Events-last exam Pt seen and examined. Wound care nurse at bedside. Pt denies any new pain or problems. Review of Systems General: No Chills, No Night Sweats Pulmonary: No Dyspnea, No Cough Cardiovascular: No: Chest Pain Gastrointestinal: No: Nausea, Vomiting Objective Exam Vital Signs Date Time Temp Pulse Resp B/P Pulse Ox O2 Delivery O2 Flow Rate FiO2 07/17/16 08:18 97.3 63 16 97/67 96 Room Air 07/17/16 04:00 96.7 61 18 93/54 98 Room Air 07/17/16 00:00 96.7 60 18 96/53 98 Room Air 07/16/16 20:14 95.4 60 18 91/55 96 Room Air 07/16/16 20:00 98 Room Air 07/16/16 16:07 95.5 54 18 80/51 96 Room Air 07/16/16 12:37 95.3 64 18 86/53 95 Room Air I & O 07/17/16 07:00 Intake Total 2550 ml Output Total 2300 ml Balance 250 ml Capillary Refill : Less Than 3 SecondsLess Than 3 Seconds General Appearance: No Apparent Distress WD/WN Chronically ill HEENT: PERRL/EOMI Neck: Non Tender Supple Carotid Bruit Respiratory: Chest Non Tender Lungs Clear Normal Breath Sounds No Accessory Muscle Use No Respiratory Distress Cardiovascular: Regular Rate, Rhythm No Edema No Gallop No JVD No Murmur Normal Peripheral Pulses Gastrointestinal: distended Extremity: Pedal Edema Swelling Other (chronic lymphedema lower legs. lateral and plantar aspect, necrosis seems to be spreading) Neurologic/Psychiatric: Alert Oriented x3 Depressed Affect Results Lab Laboratory Tests 07/16/16 10:45: Glucometer 163H 07/16/16 15:43: Glucometer 192H 07/16/16 21:16: Glucometer 171H 07/17/16 05:12: Glucometer 150H Microbiology 07/14/16 Blood Culture - Preliminary, Resulted Proteus Mirabilis 07/14/16 Urine Culture - Final, Complete 07/14/16 Gram Stain - Final, Resulted 07/14/16 Wound Culture - Preliminary, Resulted Staphylococcus Aureus Proteus Mirabilis Klebsiella Oxytoca Assessment/Plan Assessment/Plan Assessment/Plan Cellulitis probable gangrene of Left foot, with 2 healing ulcers on same foot. -S/P sharp debridement at bedside - IV abx - wound VAC taken down, left off for Podiatry consult - pt may need further Debridement; unfortunately he may need BKA instead Osteomyelitis - according to Radiologist foot xray looks like it is probably osteomyelitis Podiatry consult ordered, spoke to Dr. Chanel DM, CAD, Severe ischemic Cardiomyopathy - [facility] Spoke with Dr. Angel, pt may not even want BKA and may just choose comfort measures. She does not think he is well enough for any type of surgery. Clinical Quality Measures DVT/VTE Risk/Contraindication: Risk Factor Score Per Nursin RFS Level Per Nursing on Admit: 4+=Very High NINA CONTE DO Jul 17, 2016 10:32
--- NOTE | 2016-07-17 11:20 | Physician Query-Debridement ---
Physician Query-Debridement Query to Physician: We need your assistance to accurately assign a procedure code. Physician participation is requested in all cases of hospice aide uncertainty to minimize errors in code assignment and to avoid compliance issues. Excisional debridement of wound, infection, or burn: Surgical removal or cutting away of devitalized tissue, necrosis, or slough. Can be done in the operating room, ER, or at the bedside. Non-excisional debridement: Nonoperative brushing, irrigation, scrubbing, or washing of devitalized tissue, necrosis, or slough. Includes snipping of tissue followed by Lam tank Tx and minor scissors removal of loss fragments. Can be done by a nurse, therapist, or doctor. Please clarify the type of debridement on this form as an addendum for service date (s) of: 07/15/16 Please clarify the deepest layer of debridement of this patient's foot ulcer (ie : skin,subcutaneous,muscle, tendon, bone?) PHYSICIAN RESPONSE: PQ Debridement : Type: Excisional If excisional, deepest level: Muscle (Tendon) If you have questions please contact: Patient Insurance Clerk:Kim Gresham [facility] Ext:[phone] Thank you for your time and cooperation. Clinical Physician Internist/Patient Insurance Clerk This is a permanent part of the medical record KIM GRESHAM Jul 17, 2016 11:20 NINA CONTE DO Jul 19, 2016 11:35
--- NOTE | 2016-07-17 11:23 | Physician Query-General Query ---
Physician Query-General Query to Physician: For clarification: Was this patient's osteomyelitis considered acute,chronic,unspecified or other? PHYSICIAN RESPONSE: Based on the clinical findings in the record, please respond to the query above on this document as an addendum. Possible, probable, or questionable diagnosis can be coded for INPATIENTS ONLY. Physician Response: Physician Response Acute on chronic If you have questions please contact: Underwater Welder:Kim Gresham [facility] Ext:[phone] Thank you for your time and cooperation. Clinical Power Engineer/Underwater Welder This is a permanent part of the medical record KIM GRESHAM Jul 17, 2016 11:23 NINA CONTE DO Jul 19, 2016 11:36
[2016-07-17] MEDS ORDERED: HYDR-3820 PO (11:38)
[2016-07-17] MEDS ORDERED: AMOX-355 PO (11:38)
[2016-07-17] MEDS: LEVOFLOXACIN 750 MG/150 ML IV 150 ML IV SCH (11:43)
[2016-07-17 12:15] VITALS: BP 95/67
--- NOTE | 2016-07-17 12:48 | Podiatry Progress Note ---
Standard Progress Note Progress Notes/Assess & Plan Progress/Assessment & Plan See dictation. Osteomyelitis left foot Ischemic Ulceration ([place] Grade 3 wound) left foot Diabetic Neuropathy PVD Continue with wound care and antibiotics. Final Diagnosis Osteomyelitis left foot [place] Grade 3 wound left foot Diabetic Neuropathy PVD ANTONY TREVINO DPM Jul 17, 2016 12:48
--- NOTE | 2016-07-17 13:00 | CONSULTATION REPORT ---
DATE OF CONSULTATION: 07/17/2015 REASON FOR CONSULT: Diabetic foot care, left. This 65-year-old male is well-known to my office. He had long-standing problems with diabetic neuropathy and peripheral vascular disease. He has had a previous transmetatarsal amputation of the left lower extremity in the past. The patient has been seen by Dr. Ann the wound care clinic recently and it was deemed by Dr. Ann when admitted. He has had IV antibiotics, which has helped to some degree. The patient is being treated with a local wound care to the distal and proximal wounds of the left foot but wound VAC to the largest of the foot lesion on the left. The patient denies any significant pain. He relates some chills, but no nausea, vomiting, and no fever. PHYSICAL EXAMINATION: This is a well developed male who is sitting upright in the chair. LOWER EXTREMITY EXAMINATION: The patient has nonpalpable pedal pulses AND brawny edema bilateral lower extremity. On the left there were three wounds; the wound care nurse was assisting me today and we took a look at essentially the largest of 3 which is 35 x 35 mm and 15 mm in depth. It does have necrotic base to it with exposed tendon. There is maceration to the wound borders especially the inferior aspect of the wound. There is dependent rubor to the entire foot so it would be hard to distinguish it from any cellulitic or erythematous changes. X-rays were reviewed which demonstrate significant breakdown of the osseous matrix of the 3rd and 4th metatarsals. There is also gas in the soft tissue laterally. There is also calcification of the articular blood vessels going into the foot. ASSESSMENT: Ischemic ulcer of the left mid foot with probable osteomyelitis, atherosclerosis, peripheral neuropathy. PLAN: Various treatment options were discussed with the patient. Some of the macerated tissue was debrided sharply today. The 10 blade was also utilized within the wound base and there is no bleeding able to be initiated with superficial debridement. The wound was flushed and we will continue with the wound Vac for now. The patient is not a good surgical candidate and bypass surgery is unlikely. However I will defer to a vascular specialist in this regard. In conversation with the primary care physician, the patient is not a surgical candidate and likely would not survive anesthesia. So a distal or even a below-knee amputation is not likely to be undertaken at this time. I recommend continued wound care as well as IV antibiotics at this juncture and follow-up with wound care with Dr. Ann Job ID: [id number] Dictated Date: 07/17/2016 12:44:30 Floor Sander Date: 07/17/2016 12:50:08/uye
[2016-07-17 16:44] VITALS: BP 88/55
[2016-07-17 20:13] VITALS: BP 107/64
[2016-07-17] MEDS: HYDROcodone/APAP 10 MG/325 MG (LORTAB) TAB PO PRN (23:44)
[2016-07-18 00:20] VITALS: BP 87/57
[2016-07-18 04:15] VITALS: BP 116/60
[2016-07-18] MEDS: PIPERACILLIN SODIUM/TAZOBACTAM 4.5 GM in NORMAL SALINE (BAXTER MINI) 100 ML IV SCH ×2 (04:52→12:00)
[2016-07-18 05:59] VITALS: BP 119/66
[2016-07-18] MEDS: NS IV 1000 ML 1,000 ML IV SCH (06:11)
[2016-07-18] MEDS: KCL 20 MEQ TAB (K-DUR) PO SCH (06:11)
[2016-07-18] MEDS: FUROSEMIDE 40 MG (LASIX) TAB PO SCH (06:11)
[2016-07-18 08:00] VITALS: BP 138/69
[2016-07-18] MEDS: APIXABAN 5 MG (ELIQUIS) TABLET PO SCH (09:06)
[2016-07-18] MEDS: DIGOXIN 0.25 MG (LANOXIN) TAB PO SCH (09:06)
[2016-07-18] MEDS: ASPIRIN E.C. 81 MG (ECOTRIN) TAB PO SCH (09:07)
[2016-07-18] MEDS: MENTHOL/ZINC OXIDE (CALMOSEPTINE) 113 GM TUBE TOP SCH (09:07)
[2016-07-18] MEDS: lisINopril 5 MG (PRINIVIL) TABLET PO SCH (09:07)
[2016-07-18] MEDS: CLOPIDOGREL 75 MG (PLAVIX) TABLET PO SCH (09:07)
[2016-07-18] MEDS: CARVEDILOL 3.125 MG (COREG) TABLET PO SCH (09:07)
[2016-07-18] MEDS: METOLAZONE 5 MG (ZAROXOLYN) TAB PO SCH (09:09)
[2016-07-18] MEDS: HYDROcodone/APAP 10 MG/325 MG (LORTAB) TAB PO PRN (09:20)
[2016-07-18] MEDS ORDERED: HYDR-3729 PO (09:45)
--- NOTE | 2016-07-18 10:00 | Discharge Summary-Hospitalist ---
Diagnosis/Chief Complaint Date of Admission Jul 14, 2016 at 11:23 Date of Discharge Discharge Date: Jul 18, 2016 Admission Diagnosis Complicated cellulitis in a complex wound care patient of lower extremity lymphedema with chronic dermatitis Cirrhosis with ascites requires paracentesis periodically Continued smoker Systolic dysfunction ejection fraction of 10 %? managed by Dr. Cullen Noncompliance Hyponatremia CAD AF Discharge Diagnosis Complicated cellulitis in a complex wound care patient of lower extremity lymphedema with chronic dermatitis with osteomyelitis End of life consulting Hospice for enrollment if surgeons agree patient is not a surgical candidate Cirrhosis with ascites requires paracentesis periodically Continued smoker Systolic dysfunction ejection fraction of 10 %? managed by Dr. Cullen Noncomvarghese Hyponatremia CAD AF Empiric antibiotics with Zosyn and vancomycin Monitor labs Home meds Pain control Wound care guest services manager Improve hygiene while in hospital May need paracentesis for ascites Reason Hospital Visit/Course CC: Cellulitis in complicated lower leg wound care patient HPI: This is a very complicated medical patient of Dr. Saravia that was last hospitalized 18 months ago for sepsis that has a long-standing history of lower extremity lymphedema with dermatitis that secondarily infects quite often there is managed by Dr. Ann wound care the presents to the emergency room due to weakness and increased lower leg pain and found to have complicated cellulitis in need of IV antibiotics of Zosyn and vancomycin and more supportive care for his psychosocial issues. Currently he is eating lunch and had apparently not been bathing regularly for the last several months requiring a major shower with intensive scrub down by the nursing staff prior to be admitted to room 410. Currently he is reporting his leg pain is 6 out of 10 but otherwise has no other major issues. PMH: PAST MEDICAL HISTORY: 1. Severe ischemic cardiomyopathy. 2. Insulin-dependent diabetes mellitus. 3. Diabetic peripheral neuropathy. 4. Cellulitis involving the legs. 5. Peripheral vascular disease. 6. Coronary artery disease. 7. Skin cancer. 8. Depression. 9. Osteoporosis. 10. Arthritis. 11. Amputation multiple toes left foot, Dr. Márquez podiatry. 12. Status post the fibular pacemaker placement left anterior chest. 13. History of ethanol use but teetotaler for many years. 14. Continues to smoke cigarettes despite advice to quit. Notes from 07/17/2015: Patient Interview: Pt states that he would like to DC as soon as able. Pt ambulated to take a shower today, and the bandages on leg were changed. Pt uses [facility] for pharmacy. Pt states that he normally calls in medicine, and son goes to pick it up. Physical exam was stable. Pt denies having BM. Dr. Schmid informs pt that he may be able to DC today or tomorrow, and pt will have follow-up wound care with Dr. Ann. Pt denies having home health. AFVSS, Pleasant, up in chair Irr Irr, CTAB no rales noted Noted edema and severe cellulitis of lower legs with wound vac on left heel Plan: SW consult regarding DC plans Scribed by Jonatan Mitchell under the direct supervision of Dr. Schmid. Hospital course: Patient was admitted for severe cellulitis and a complicated wound of chronic lymphedema patient followed by wound care. He's had significant medical issues related to congestive heart failure and liver cirrhosis that are both end-stage. After cultures were completed Augmentin was initiated by mouth antibiotic and will need to be on that antibiotic for several more weeks due to presumed osteomyelitis per CT scan. I did speak with the general surgeons to consult to podiatry because he really needs an amputation of which the patient is not agreeable at this time but wanting the second opinion in order to make and a decision regarding hospice which he meets full criteria of less than 6 months to live. At the time of this dictation Dr. Peters had not seen the patient yet and will see him during the noon hour but I did confer with him my thoughts that the end-stage illnesses that he has precludes him from surviving any type of surgery and may very well cause additional pain and suffering for the patient. Poor prognosis overall. Notes from 07/18/2016: SW Review: SW will assist with contacting Dr. Saravia. Patient Interview: Pt states that he feels better today, and that he spoke with many medical staff members yesterday. Pt would like to go home. Pt states that his son will be able to pick him up from [facility]. Pt denies using home O2. Pt states that his pain is manageable with current medications. Pt states that he takes 3 pain pills per day. Pt confirms that Dr. Saravia is PCP. Pt states that he has hospice arranged. Plan: SW consult for DC plans Consult Dr. Saravia DC today with hospice Refill 60 Hydrocodone Augmentin 2 week supply Scribed by Jonatan Mitchell under the direct supervision of Dr. Schmid. Hospital course: Patient had a lengthy hospital course he was admitted for severe cellulitis of a chronic peripheral vascular disease ulcer and previous amputation metatarsal on the left foot. Multiple consultations ensued with general surgery and wound care and podiatry revealing osteomyelitis and needed an AKA. He would not survive the surgery due to his low ejection fraction and end-stage liver cirrhosis so palliative care was consulted everyone was in agreement including the patient to sign up for hospice which was reasonable and I did speak with his primary care provider who had not seen him since 2013 which surprised me since he still considers him his primary care provider and list him as such but Dr. Saravia was gracious enough to place patient on his hospice service for end-of-life care and prognosis is very poor overall. Discharge Summary Discharge Physical Examination Allergies: Coded Allergies: No Known Drug Allergies (Verified , 07/14/16) Vitals & I&Os Vital Signs Date Time Temp Pulse Resp B/P Pulse Ox O2 Delivery O2 Flow Rate FiO2 07/18/16 09:14 Room Air 07/18/16 08:00 95.8 69 18 138/69 96 Hospital Course Labs (last 24 hrs) Laboratory Tests 07/17/16 16:04: Glucometer 149H 07/17/16 21:22: Glucometer 133H 07/18/16 05:45: Glucometer 130H 07/18/16 10:37: Glucometer 180H Microbiology 07/14/16 Blood Culture - Preliminary, Resulted Proteus Mirabilis 07/14/16 Urine Culture - Final, Complete 07/14/16 Gram Stain - Final, Complete 07/14/16 Wound Culture - Final, Complete Staphylococcus Aureus Proteus Mirabilis Klebsiella Oxytoca Proteus Penneri Pending Labs Laboratory Tests 07/18/16 05:45: Glucometer 130 07/18/16 10:37: Glucometer 180 Discharge Home Medications: Active Scripts Active Lortab 5-325 mg Tablet (Hydrocodone/Acetaminophen) 1 Each Tablet 1 Each PO Q4H Augmentin 500-125 Tablet (Amoxicillin/Potassium Clav) 1 Each Tablet 1 Each PO BID Reported Carvedilol 6.25 Mg Tablet 3.125 Mg PO BID LAST FILLED 05/22/16 #30 / TAKES 1/2 OF A (6.25 MG) TABLET Digoxin 250 Mcg Tablet 250 Mcg PO DAILY Eliquis (Apixaban) 5 Mg Tablet 5 Mg PO BID Clopidogrel (Clopidogrel Bisulfate) 75 Mg Tablet 75 Mg PO DAILY Klor-Con M20 (Potassium Chloride) 20 Meq Tab.er.prt 20 Meq PO BID Lisinopril 2.5 Mg Tablet 2.5 Mg PO DAILY Metolazone 5 Mg Tablet 5 Mg PO Q48H Furosemide 80 Mg Tablet 80 Mg PO BID Aspirin Ec 81 Mg (Aspirin) 81 Mg Tabec 81 Mg PO DAILY Instructions to patient/family Please see electonic discharge instructions given to patient. Clinical Quality Measures DVT/VTE Risk/Contraindication: Risk Factor Score Per Nursin RFS Level Per Nursing on Admit: 4+=Very High TA SCHMID DO Jul 18, 2016 10:00
[2016-07-18] MEDS: LEVOFLOXACIN 750 MG/150 ML IV 150 ML IV SCH (12:00)
[2016-07-18 12:19] VITALS: BP 138/69
== END 2016-07-18 12:25 | disposition hospice, home (50) | DRG 854 ==
LOC: EDUNIT# 09:18 → ER 09:19 → 4TH 11:23
PROVIDERS: ADMIT Internal Medicine; ATTEND Internal Medicine
PROC: 0KBW0ZZ Excision of Left Foot Muscle, Open Approach (ICD-10-PCS; principal; 2016-07-15)
DX: A41.01 Sepsis due to Methicillin susceptible Staphylococcus aureus (principal); A41.4 Sepsis due to anaerobes; E11.69 Type 2 diabetes mellitus with other specified complication; M86.172 Other acute osteomyelitis, left ankle and foot; M86.672 Other chronic osteomyelitis, left ankle and foot; L03.116 Cellulitis of left lower limb; E11.52 Type 2 diabetes mellitus with diabetic peripheral angiopathy with gangrene; E11.621 Type 2 diabetes mellitus with foot ulcer; L97.403 Non-pressure chronic ulcer of unspecified heel and midfoot with necrosis of muscle; E87.1 Hypo-osmolality and hyponatremia; I25.5 Ischemic cardiomyopathy; F17.210 Nicotine dependence, cigarettes, uncomplicated; I25.10 Atherosclerotic heart disease of native coronary artery without angina pectoris; L89.152 Pressure ulcer of sacral region, stage 2; L89.892 Pressure ulcer of other site, stage 2; I89.0 Lymphedema, not elsewhere classified; L30.9 Dermatitis, unspecified; F32.9 Major depressive disorder, single episode, unspecified; K74.60 Unspecified cirrhosis of liver; I48.91 Unspecified atrial fibrillation; I11.0 Hypertensive heart disease with heart failure; I50.9 Heart failure, unspecified; M06.9 Rheumatoid arthritis, unspecified; Z79.4 Long term (current) use of insulin; Z91.19 Patient's noncompliance with other medical treatment and regimen; Z95.5 Presence of coronary angioplasty implant and graft; Z89.422 Acquired absence of other left toe(s)
CPT/HCPCS: 36415; 71010; 73610; 73630; 80053; 80202; 81000; 82962; 83605; 83880; 85007; 85025; 85027; 87040; 87070; 87077; 87088; 87186; 87205; 93005; 96365